=== PATIENT | male | born 1960 | race Caucasian/White ===

== ENCOUNTER → 2024-12-08 07:10 | Outpatient (REF) | payer BC, SELFPAY | LOC: HWRCS 07:10 | PROVIDERS: ATTENDING PHYSICIAN Internal Medicine Cardiovascular Disease; FAMILY PHYSICIAN Family Medicine | DX: I48.19 Other persistent atrial fibrillation (principal); I42.9 Cardiomyopathy, unspecified | CPT/HCPCS: 93306 ==

== ENCOUNTER 2024-12-14 06:20 | Day surgery (SDC) | payer BC, SELFPAY ==
[2024-12-14] VITALS (11 sets, daily range): BP systolic 132–157; BP diastolic 84–101; BMI 21.6
[2024-12-14] MEDS: LOW STRENGTH ASPIRIN 81 MG PO (06:47)
[2024-12-14] MEDS: NSS 291 ML IV (07:09)
--- NOTE | 2024-12-14 09:28 | ITS.CL.CATH ---
Mortgage Operations Manager - Catheterization
Cardiac Catheterization
Procedure Report:
CARDIAC CATHETERIZATION REPORT
Date of Procedure: 12/14/2024
Referring: Nathan Tesfaye M.D.
Indication: Aortic valve insufficiency, shortness of breath/cough, coronary artery calcification, new cardiomyopathy.
PROCEDURE:
1. Right heart catheterization.
2. Coronary angiography.
3. Left heart catheterization.
4. Aortography.
A total of 12 minutes of procedural/moderate sedation was utilized. An independent biomedical engineering professor was present to assist with and help manage the patient's level of consciousness and physiologic status.
ACCESS:
1. 6 Haitian right radial artery using a modified Seldinger technique.
2. 5 Haitian right antecubital vein using a previously placed IV.
CATHETERS:
1. 5 Haitian balloon with.
2. 5 Haitian JL 5.
3. 6 Haitian JR4.
4. 6 Haitian straight pigtail.
HEMODYNAMIC DATA
Weight (kg): 94.3
AO (s/d/x, mmHg): 130/75/98
LV (s/x, mmHg): 134/20
PCWP (a/v/x, mmHg): 23/22/21
PA (s/d/x, mmHg): 40/21/26
RV (s/x, mmHg): 40/14
RA (a/v/x, mmHg): 15//14
SVC SvO2 (%): 66.7
IVC SvO2 (%): Not obtained.
RA SvO2 (%): Not obtained.
RV SvO2 (%): Not obtained.
PA SvO2 (%): 67.7
SaO2 (%): 93.1
Hbg (g/dL): 14.2
LATRELL
CO (L/min): 5.52
CI (L/min/m2): 2.55
Thermodilution
CO (L/min): Not performed.
CI (L/min/m2): Not performed.
TPG (mmHg): 5
PVR (Combs Units): 0.91
SVR (dynes*seconds*cm^-5): 1217
AVO2 Diff (Volume %): 4.91
AV gradient (x, mmHg): None.
AV area (cm2): Normal.
MV gradient (x, mmHg): Not obtained.
MV area (cm2): Not obtained.
LEFT VENTRICULOGRAPHY: Not performed.
AORTOGRAPHY: Performed in an CHELSY projection. The aortic root and ascending aorta are at least moderately dilated. There is no evidence of dissection in any visualized portion of the aorta. There is moderate to severe aortic valve regurgitation
(3+).
CORONARY ANGIOGRAPHY
Dominance: Right.
Left Main: Short, broad, trifurcating vessel. There is no coronary artery disease.
LAD: Normal size vessel giving rise to 2 diagonals. There are minor luminal irregularities throughout.
Ramus: Large size vessel supplying the majority of the lateral wall after bifurcating into a small upper and much larger lower branch. There is no coronary artery disease. The distal vessels are severely tortuous.
Circumflex: Small size, nondominant vessel giving rise to 2 small obtuse marginals there is no coronary artery disease. There is moderate to severe tortuosity.
RCA: Normal size, dominant vessel. There is no coronary artery disease. There is moderate tortuosity.
INTERVENTIONS
None.
Closure Device: Vascular band for the right radial artery, manual pressure for the right antecubital vein.
Radiation dose (mGy): 621.89
DAP (cm2.Gy): 55.4849
Fluoroscopy time (minutes): 8.4
CONCLUSIONS:
1. Right dominant circulation with minor luminal irregularities in the LAD but no occlusive coronary artery disease.
2. Moderately elevated filling pressures (LVEDP = 20 mmHg, PCWP = 21 mmHg at 94.3 kg).
3. Preserved cardiac index (2.55 L/min/m�).
4. Dilated aorta with moderate to severe aortic valve regurgitation (3+/4).
RECOMMENDATIONS:
1. Expectant management after cardiac catheterization via right radial/antecubital approach.
2. Limited weight bearing on the right wrist for one week.
3. Consultation with CT surgery regarding optimal treatment strategy, including aortic root replacement, aortic valve replacement, MAZE and left atrial appendage ligation.
4. Start furosemide 20 mg p.o. daily for elevated filling pressures. BMP in 1 week to monitor renal function.
5. OMT/GDMT as hemodynamics will tolerate.
6. Patient may resume apixaban this evening.
Copy to: Jerry Hart M.D., Nathan Tesfaye M.D., Shaggy Yancey, D.O.
Maurice Velez DO, FACC, FACP
[2024-12-14] MEDS: NSS 1000 IV (09:30)
== END 2024-12-14 12:05 | disposition home or self-care (01) ==
LOC: CATH 06:20
PROVIDERS: ATTENDING PHYSICIAN Internal Medicine Cardiovascular Disease; FAMILY PHYSICIAN Family Medicine; OTHER PHYSICIAN Internal Medicine Cardiovascular Disease
DX: I35.1 Nonrheumatic aortic (valve) insufficiency (principal); R05.9 Cough, unspecified; R06.02 Shortness of breath; I42.9 Cardiomyopathy, unspecified; I25.10 Atherosclerotic heart disease of native coronary artery without angina pectoris; I48.19 Other persistent atrial fibrillation; I71.21 Aneurysm of the ascending aorta, without rupture; I10 Essential (primary) hypertension; M06.9 Rheumatoid arthritis, unspecified; E78.2 Mixed hyperlipidemia; R94.31 Abnormal electrocardiogram [ECG] [EKG]; Z79.01 Long term (current) use of anticoagulants; Z79.899 Other long term (current) drug therapy
CPT/HCPCS: 99152; 93460; 93567; C1894; Q9967

== ENCOUNTER → 2025-01-05 13:58 | Outpatient (REF) | payer BC, SELFPAY | LOC: RAD 13:58 | PROVIDERS: ATTENDING PHYSICIAN Thoracic Surgery (Cardiothoracic Vascular Surgery); FAMILY PHYSICIAN Family Medicine | DX: I71.21 Aneurysm of the ascending aorta, without rupture (principal); Z01.810 Encounter for preprocedural cardiovascular examination | CPT/HCPCS: 75573; Q9967 ==

== ENCOUNTER 2025-02-14 05:01 | Inpatient (IN) | payer MEDICARE, SELFPAY ==
[2025-01-27 12:52] LABS: Hematocrit 43.7 % (39.0-52.0); Hemoglobin 15.5 g/dL (13.0-18.0); Mean Corp Hgb Conc. 35.5 g/dL (33.0-37.0); Mean Corpuscular Volume 95.4 fL (80.0-94.0); Nucleated Red Blood Cells % 0 % (-); Platelet Count 280 10^3/uL (130-400); Red Cell Dist. Width 13.2 % (11.5-14.5)
[2025-01-27 12:57] LABS: INR 1.34; PT 16.9 Sec (11.4-14.6)
[2025-01-27 13:09] LABS: Urine Character Clear (Clear)
--- NOTE | 2025-01-27 13:38 | CM ---
Met with Mr. Dawson in [facility]. He states prior to admission he resides with his spouse in a three story home without any steps to enter. He states he has a full flight of steps to get to bedroom/full bathroom. He states he has a powder room on
the first floor. He states prior to admission he was independent with ambulation and adls. He states he does not have any DME in the home. He states he has a prescription plan. He states his spouse will be home to assist in his care if needed. The
discharge plan is to return home with his spouse and a home visit by the Transitional Care Nurse when medically stable.
We reviewed pre-op and post-op routines. We reviewed the shower instructions. He has the soap, written instructions and the Cardiothoracic Surgery Educational Booklet. We also reviewed restrictions including sternal precautions and driving
restrictions. We also discussed a home visit by the Transitional Care Nurse. He is agreeable to a home visit. The plan is for Aortic Valve on Friday, February 14, 2025.
[2025-01-27 13:45] LABS: Glycohemoglobin (HgbA1c) 5.5 % (4.0-5.6)
[2025-01-27 13:46] LABS: ALT (SGPT) 28 U/L (0-50); AST (SGOT) 31 U/L (17-59); Albumin 4.2 g/dl (3.5-5.0); Alkaline Phosphatase 90 U/L (38-126); Blood Urea Nitrogen 31 mg/dl (9-20); Calcium 9.5 mg/dl (8.4-10.2); Carbon Dioxide 32 mmol/L (22-30); Chloride 102 mmol/L (98-107); Glucose 80 mg/dl (70-99); Potassium 4.7 mmol/L (3.5-5.1); Sodium 140 mmol/L (135-145); Total Protein 7.5 g/dl (6.3-8.2); eGFR > 60.00
[2025-01-30 09:37] VITALS: BMI 29.2
[2025-02-14] VITALS (15 sets, daily range): BP systolic 88–170; BP diastolic 55–104; BMI 28.0
[2025-02-14] MEDS: BACTROBAN 2% OINTMENT 1 APPLIC NASAL ×2 (05:39→20:41)
[2025-02-14] MEDS: LOPRESSOR 25 MG PO (05:39)
[2025-02-14] MEDS: PROTONIX 40 MG PO (05:40)
[2025-02-14] MEDS: MAGNESIUM OXIDE 400 MG PO (05:40)
--- NOTE | 2025-02-14 06:00 | PTCARENOTE ---
Patient admitted to CVICU. Patient confirmed NPO and 2 showers at home. Patient clipped and washed w/ CHG. Admission questions asked. Medications administered. Medication reconciliation performed. Patient states taking Elequis last on
02/10/25. CT PA Ed notified. Updated Hx and physical performed by Ed.
--- NOTE | 2025-02-14 06:49 | W.CVOR.SURPR ---
CVOR Surgeon Immed Pre Op
-
I have examined this patient prior to performance of the scheduled procedure.
The patient's condition is unchanged from the time of the dictated/written History and
Physical and the patient is able to undergo the scheduled procedure.
AVR vs repair, LA MAZE, LA Clip
[2025-02-14 09:15] LABS: ACT+ - POC 137 Seconds (82-134)
[2025-02-14 09:19] LABS: Urine Character Clear (Clear)
[2025-02-14 09:28] LABS: Urine Squamous Cell 0-2 /LPF (Few)
[2025-02-14 09:29] LABS: Urine Red Blood Cell 0-2 /HPF (0-2); Urine White Cell 0-2 /HPF (0-5)
[2025-02-14 10:01] LABS: ACT+ - POC 498 Seconds (82-134)
[2025-02-14 10:03] LABS: B.E. - POC 0.8 mmol/L; Glucose - POC 84 mg/dl (70-99); HCO3 - POC 26 mmol/L (21-28); Hematocrit - POC 34 % PCV (42-52); Hemodilution- POC No; Hemoglobin Calculated - POC 11.7; Ionized Calcium - POC 1.17 mmol/L (1.15-1.33); Lactate - POC 0.57 mmol/L (0.36-0.75); O2 Saturation %Calculated-POC 99.7 % (94-98); PCO2 - POC 44 mmHg (35-48); PO2 - POC 203 mmHg (83-108); POC Comment PRE; Potassium - POC 3.7 mmol/L (3.5-5.1); Sodium - POC 140 mmol/L (136-145); Specimen Type - POC Arterial; pH - POC 7.38 (7.35-7.45)
[2025-02-14 10:11] LABS: ACT+ - POC 507 Seconds (82-134)
[2025-02-14 10:33] LABS: ACT+ - POC 448 Seconds (82-134)
[2025-02-14 10:42] LABS: ACT+ - POC 434 Seconds (82-134)
[2025-02-14 10:43] LABS: B.E. - POC 5.5 mmol/L; Glucose - POC 120 mg/dl (70-99); HCO3 - POC 29 mmol/L (21-28); Hematocrit - POC 34 % PCV (42-52); Hemodilution- POC Yes; Hemoglobin Calculated - POC 11.5; Ionized Calcium - POC 1.07 mmol/L (1.15-1.33); Lactate - POC 0.71 mmol/L (0.36-0.75); O2 Saturation %Calculated-POC 99.9 % (94-98); PCO2 - POC 36 mmHg (35-48); PO2 - POC 256 mmHg (83-108); POC Comment CPB; Potassium - POC 5.0 mmol/L (3.5-5.1); Sodium - POC 138 mmol/L (136-145); Specimen Type - POC Arterial; pH - POC 7.51 (7.35-7.45)
[2025-02-14 10:47] LABS: B.E. - POC 8.9 mmol/L; Glucose - POC 110 mg/dl (70-99); HCO3 - POC 34 mmol/L (21-28); Hematocrit - POC 33 % PCV (42-52); Hemodilution- POC Yes; Hemoglobin Calculated - POC 11.1; Ionized Calcium - POC 1.11 mmol/L (1.15-1.33); Lactate - POC < 0.30 mmol/L (0.36-0.75); O2 Saturation %Calculated-POC 100.0 % (94-98); PCO2 - POC 50 mmHg (35-48); PO2 - POC 574 mmHg (83-108); POC Comment CPB; Potassium - POC 4.2 mmol/L (3.5-5.1); Sodium - POC 139 mmol/L (136-145); Specimen Type - POC Arterial; pH - POC 7.45 (7.35-7.45)
[2025-02-14 10:51] LABS: ACT+ - POC 432 Seconds (82-134)
[2025-02-14 11:02] LABS: ACT+ - POC 442 Seconds (82-134)
[2025-02-14 11:08] LABS: B.E. - POC 3.5 mmol/L; Glucose - POC 140 mg/dl (70-99); HCO3 - POC 26 mmol/L (21-28); Hematocrit - POC 35 % PCV (42-52); Hemodilution- POC Yes; Hemoglobin Calculated - POC 12.0; Ionized Calcium - POC 1.08 mmol/L (1.15-1.33); Lactate - POC 0.87 mmol/L (0.36-0.75); O2 Saturation %Calculated-POC 99.9 % (94-98); PCO2 - POC 33 mmHg (35-48); PO2 - POC 241 mmHg (83-108); POC Comment WARM; Potassium - POC 5.5 mmol/L (3.5-5.1); Sodium - POC 139 mmol/L (136-145); Specimen Type - POC Arterial; pH - POC 7.51 (7.35-7.45)
[2025-02-14 11:17] LABS: ACT+ - POC 129 Seconds (82-134)
--- NOTE | 2025-02-14 11:25 | CM ---
Chart reviewed. Patient is in the OR today. Patient is independent of ADLS, lives with his in a 3 STH, 0 BLAZE, 0 DME. Plan is for the patient to return home with CT Transitional RN. CM to follow
--- NOTE | 2025-02-14 11:30 | W.PN.CT.SURG ---
CT Surgery Operative Note
-
CARDIAC SURGERY OPERATIVE REPORT
Preoperative Diagnosis: Aortic valve insufficiency with symptoms and atrial fibrillation
Postoperative Diagnosis: Same
Procedure(s) Performed:
1. Standard sternotomy with aortic and right atrial cannulation
2. Left atrial maze, posterior wall isolation using RF ablation
3. Ligation left atrial appendage [35 mm clip]
4. Surgical aortic valve replacement [29 mm bioprosthesis]
5. Placement of temporary atrial ventricular pacing wires
Date of Surgery: 02/15/2024
Comorbidities:
1. Persistent atrial fibrillation
2. Moderately severe aortic valve insufficiency with symptoms
3. Rheumatoid arthritis on chronic prednisone
4. Mild ascending aortic ectasia
Attending Surgeon: Jerry Hart MD, MS
Assistants: Carlos Moore PA-C (present and necessary to advertising assistant, retraction, suction, exposure, suture management, and wound closure under my direction)
Anesthesiology: Nam Sosa MD and Lupe Guardado CRNA
Scrub and Circulating RNs: Chad Jose, RN, Mallorie Contreras, ELIZABETH
Yard Conductor: Lorene Pineda CCP
Anesthesia: GETA
EBL: per perfusion records
Products: None
CPB Time: 59 minutes
Aortic Cross Clamp Time: 42 minutes
Indication(s) for Procedures: This is a 64-year-old male with persistent atrial fibrillation who has aortic valve insufficiency. He tells me he has been more symptomatic lately given his AI which is likely contribution to his A-fib, he is referred
for consideration of surgical resection and ablation.
Aortic Valve Description: Trileaflet aortic valve, there was calcification and scarring towards the free margin of the noncoronary cusp. There is also calcification towards the central nodes on the other 2 leaflets. Some fenestrations were also
seen on the non left commissure. The left and right coronary ostia within normal anatomic positions. The annular hinge point of the valve had some mild calcification but no infiltration into the annulus.
Findings: His left ventricular ejection fraction preoperatively was 60% with no significant regional wall motion abnormalities. Following surgery his EF remained the same at 60% with no new regional wall motion abnormalities. He had at least
moderately severe aortic valve insufficiency that was eccentric directed towards the aorto mitral curtain. There was calcification of his noncoronary cusp which is likely the culprit for why he had a high. A posterior wall box RF ablation was
performed for his A-fib, this was done using the encompass clamp with 3 successful pairs of ablations. The left atrial appendage was verified to be free of any thrombus or debris preoperatively find be totally occlusive postoperatively. The
leaflets were excised and a total of 15 nonpledgeted 2 Ethibond sutures were placed circumferentially from LVOT through annulus through sewing cuff of a 29 mm bioprosthesis. This was parachuted into place and secured with core knots. Coming off
cardiopulmonary bypass there were no new regional wall motion abnormalities. He did require AV pacing as he was in a bradycardic rhythm. He did not require inotropic support. His cardiac index is over 2. No blood products required. He had no
paravalvular leak or intra valvular AI. Mean gradient across the valve was 6 mmHg. Of note he was somewhat heparin resistant requiring large doses.
Specimen(s): Aortic valve leaflets.
Prosthesis:
1. 29 mm Medtronic available ultra bioprosthesis, serial number [id number]
2. 35 mm left atrial appendage clip, 7 #[id number]
Description of Procedure: The patient was taken to the operating room. Their identity and procedure to be performed were verified and they were positioned supine on the operating table. Induction via general anesthesia with endotracheal intubation
was performed and central venous access and arterial monitoring were inserted. A preoperative transesophageal echocardiogram was performed to assess cardiac function and valvular function. The patient was then prepped and draped from chin to feet in
a sterile fashion. A preoperative time-out was performed with all members of the team present. A midline chest incision was performed along with median sternotomy. The innominate vein was isolated. Full heparinization was given (a total of 78,000
units). We created a pericardial well. The aortic cannulation site was chosen where it was soft, pliable, and free of calcium. Cannulation was performed with an arterial cannula in the ascending aorta and a triple-stage venous cannula through the
right atrial appendage. The arterial cannula line had an appropriate bounce and correlating pressures with test dosing. The ACT was confirmed to be over 400 and retrograde autologous priming was performed before commencing cardiopulmonary bypass.
The SVC was then away from the RPA. The oblique sinus was then developed. The encompass clamp was passed underneath the SVC and IVC across the transverse and oblique sinuses respectively. 3 successful pairs of ablation were then
performed. The pulmonary artery was away from the aorta to facilitate a clamp site and aortotomy. A left ventricular vent was placed at the right superior pulmonary vein and secured. The aortic cross-clamp was placed after decreasing the
flow on the bypass and mean arterial pressure. Due to his aortic valve insufficiency, the aorta was then transected and a stay suture was placed. Direct ostial done the left main and the right coronary ostium were given. A total of 1 L of
antegrade [place] cardioplegia was administered. There was rapid electro-mechanical arrest of the heart at 600 cc of cardioplegia essentially once we started giving down the right. Cold slush was placed into a sponge and topically on the RV while
we systemically cooled to 34 degrees centigrade.
Carbon dioxide was used to flood the field. The location of both left and right coronary vessels were visualized in the root. The leaflets were excised and sent for pathological assessment. The annulus was debrided of any calcium being mindful of
the annulus and membranous septum. The root and left ventricular outflow tract were thoroughly irrigated to remove any debris. A total of 15 non-pledgeted 2-0 ethibond inverted annular sutures were placed [id number] circumferentially. These were
brought through the sewing cuff of the prosthetic valve which as then parachuted into place. The left and right coronary ostia were visualized and were unobstructed by the valve. A Cor-Knot device was used to secure the annular sutures. The valve
was inspected and was well seated. The aortotomy was approximated with 4-0 prolene in two layers. A root vent was then inserted. De-airing maneuvers were performed and temporary bipolar ventricular pacing wires were placed on the base of the right
ventricle along with atrial pacing wires at the SVC right atrial junction. The patient was placed in a Trendelenburg position and flows on bypass were lowered. The aortic cross clamp was removed and flows were slowly brought back up. The aortotomy
appeared hemostatic. Transesophageal echocardiography revealed no paravalvular leak and appropriate prosthetic function. Once de-airing was satisfactory, the left ventricular and root vents were removed. After verifying acceptable parameters, we
initiated weaning from cardiopulmonary bypass. Once we were off cardiopulmonary bypass, the venous cannula was clamped and removed. A test dose of protamine was administered and the patient was monitored for any adverse reaction before resuming
protamine. Once half of the protamine dose was delivered, pump suckers were turned off and the systolic blood pressure was lowered for aortic decannulation. The aortic cannula was removed and pursestrings were tied down. All cannulation sites were
oversewn with a 4-0 prolene. The aortotomy suture line was inspected and hemostasis was confirmed. Mediastinal hemostasis was obtained. Two 24Fr Xu drains were placed within the pericardium. The sternum was approximated with 4#7 single and 3 #8
double stainless steel wires. Fascia was approximated with #1 vicryl suture. The subcutaneous, dermis and epidermis were closed in layers in a running fashion. The skin wound was cleansed and dressed.
All instrument, sponge, and needle counts were confirmed to be correct x 2 at the end of the operation. The patient was transferred to the cardiac intensive care unit in critical but stable condition.
I, Dr. Jerry Hart, was present, scrubbed for, and performed all critical elements of this procedure.
Jerry Hart MD, MS
Cardiothoracic Surgeon
[facility]
This operative dictation was created using the [employer] dictation system. Please excuse any grammatical, typographical, or 'sound alike' errors
[2025-02-14 11:38] LABS: B.E. - POC 0.5 mmol/L; Glucose - POC 82 mg/dl (70-99); HCO3 - POC 24 mmol/L (21-28); Hematocrit - POC 31 % PCV (42-52); Hemodilution- POC Yes; Hemoglobin Calculated - POC 10.5; Ionized Calcium - POC 1.25 mmol/L (1.15-1.33); Lactate - POC 0.94 mmol/L (0.36-0.75); O2 Saturation %Calculated-POC 99.9 % (94-98); PCO2 - POC 36 mmHg (35-48); PO2 - POC 282 mmHg (83-108); POC Comment POST; Potassium - POC 3.9 mmol/L (3.5-5.1); Sodium - POC 140 mmol/L (136-145); Specimen Type - POC Arterial; pH - POC 7.44 (7.35-7.45)
--- NOTE | 2025-02-14 11:52 | CON.INTV ---
Consultation
Consultation Request
Date/Time Consultation Requested: 02/14/2025 - 112
Date/Time Consultation Performed: 02/14/2025 - 1150
Requesting Provider: Tonya Morrow NP
Performing Provider: Dr. Rivera
Reason for Consultation: s/p SAVR + LA MAZE
Medical History
-
Chief Complaint: Elective aortic valve replacement
History of Present Illness:
64-year-old male with a past medical history of A-fib on Eliquis, hypertension and RA who presents for elective surgical aortic valve replacement. Patient known to the CT surgery service with last visit with Dr. Hart on 01/09/2025. Patient had an
echo on 12/08/2024 showing a preserved LVEF at 55-60% with mild - moderate AI, and a dilated aortic root at 4.2 cm with effacement of the ST junction at 4 cm. Subsequent left heart catheterization on 12/14/2024 showed minor luminal irregularities in
the LAD without occlusive CAD, moderately elevated filling pressures with LVEDP 20 mmHg, PCWP 21 mmHg, preserved CI at 2.55 and a dilated aorta with moderate�severe aortic valve regurgitation (3+ via aortography). He endorses shortness of breath
with occasional dizziness and he is fairly active with yard work/housework. Surgical intervention with aortic valve replacement versus repair was recommended and the patient agreed to this procedure. Today, patient underwent surgical aortic valve
replacement with a 29 mm bioprosthesis, left atrial maze with posterior wall isolation using RF ablation, and ligation left atrial appendage with a 35 mm clip. There were no immediate complications, and the patient was transferred to the CVICU
postoperatively with Cuff Turner services consulted for additional management/recommendations.
When I saw the patient he had already been extubated, currently on 6 L/min nasal cannula, breathing comfortably and saturating 99%. He has mediastinal chest tubes x [address]. Insulin drip currently at 0.4 units/h, also Levophed at 2 mcg/min.
Heart rate 67, BP via A-line: 100/55, PAP 33/14, CO/CI: 4.55/2.11, respectively.
PMHx: Atrial fibrillation on Eliquis, hypertension, rheumatoid arthritis on MTX + Plaquenil
PSHx: Cardioversion, cardiac catheterization
Past Medical History
Past Medical History: Other (Above as per HPI)
Past Surgical History: Other (Above as per HPI)
Social History
Tobacco: Non-smoker
Alcohol: Occasional
Drug: None
Personal:
Living: With Family
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
Family History
Family History: Reviewed & Not Pertinent
Allergies / Home Medications
Allergies
Allergy/AdvReac Type Severity Reaction Status Date / Time
No Known Allergies Allergy Verified 01/25/25 14:20
Home Medications
�Medication �Instructions �Recorded �Confirmed �Last Taken �Type
apixaban 5 mg tablet (Eliquis) 5 mg PO BID Blood Clot 12/14/24 02/14/25 02/10/25 21:00 History
Prevention/Tx
lisinopril 10 mg tablet 10 mg PO DAILY Blood Pressure 12/14/24 02/14/25 02/13/25 09:00 History
methotrexate sodium 2.5 mg tablet 22.5 mg PO QWEEK RA 12/14/24 02/14/25 02/06/25 09:00 History
naproxen 500 mg tablet 500 mg PO DAILY PRN pain 12/14/24 02/14/25 02/09/25 21:00 History
prednisone 5 mg tablet 5 mg PO DAILY PRN RA symptoms 12/14/24 02/14/25 01/14/25 09:00 History
rosuvastatin 5 mg tablet 5 mg PO DAILY High Cholesterol 12/14/24 02/14/25 02/13/25 21:00 History
hydroxychloroquine 200 mg tablet 400 mg PO DAILY RA 01/25/25 02/14/25 02/13/25 09:00 History
furosemide 20 mg tablet (Lasix) 20 mg PO DAILY Fluid 02/14/25 02/14/25 02/13/25 09:00 History
Retention/Swelling
Review of Systems
-
Unable to Obtain full review of systems at this time due to: Acuity
Vitals / Labs / Diagnostic Testing
Vital Signs
Temp Pulse Resp BP Pulse Ox
98.1 F 71 14 93/65 96
02/14/25 05:20 02/14/25 12:20 02/14/25 12:20 02/14/25 12:04 02/14/25 12:20
Lab Data
02/14/25 12:07
Laboratory Results
02/14/25
12:07
pH 7.39
pCO2 45
pO2 165 H
HCO3 27.2
O2 Delivery Level
Diagnostic Testing:
Physical Exam
-
HEENT: Normocephalic and Anicteric
Cardiovascular: S1/S2 and Peripheral Edema (negative)
Respiratory: Clear, Wheeze (negative), Rales (negative), Rhonchi (negative) and Non-Labored Respirations
GI: Soft, Non Distended, Non Tender and Normal Bowel Sounds
Neurology: Tremors (negative) and Other (Drowsy)
Skin: Warm and Dry
General: Respiratory Distress (negative), Comfortable, Fever (negative) and Chills (negative)
Assessment
-
Assessment: 64-year-old male with a past medical history of A-fib on Eliquis, hypertension and RA who presents for elective surgical aortic valve replacement. Patient known to the CT surgery service with last visit with Dr. Hart on 01/09/2025.
Patient had an echo on 12/08/2024 showing a preserved LVEF at 55-60% with mild - moderate AI, and a dilated aortic root at 4.2 cm with effacement of the ST junction at 4 cm. Subsequent left heart catheterization on 12/14/2024 showed minor luminal
irregularities in the LAD without occlusive CAD, moderately elevated filling pressures with LVEDP 20 mmHg, PCWP 21 mmHg, preserved CI at 2.55 and a dilated aorta with moderate�severe aortic valve regurgitation (3+ via aortography). He endorses
shortness of breath with occasional dizziness and he is fairly active with yard work/housework. Surgical intervention with aortic valve replacement versus repair was recommended and the patient agreed to this procedure. On 02/14/2025, he underwent
surgical aortic valve replacement with a 29 mm bioprosthesis, left atrial maze with posterior wall isolation using RF ablation, and ligation left atrial appendage with a 35 mm clip. There were no immediate complications, and the patient was
transferred to the CVICU postoperatively with Cuff Turner services consulted for additional management/recommendations.
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
Impression:
#Moderate�severe aortic valve insufficiency s/p surgical aortic valve replacement with 29 mm bioprosthesis (POD #0)
#Atrial fibrillation s/p left atrial maze, posterior wall isolation using RF ablation and ligation left atrial appendage with 35mm clip (POD #0)
#Acute anemia due to above
#Mild ascending aortic ectasia
#RA on chronic prednisone, methotrexate and hydroxychloroquine
#Bronchiolitis with bronchial wall thickening seen on cardiac CT from 01/05/2025
#Fatty liver
Plan:
Patient had already been extubated in the CVICU and is currently breathing comfortably on 6 L/min nasal cannula and saturating 99%
Continue weaning down supplemental O2 flow rate while keeping SpO2 >90-94%
prn nebulized bronchodilators - not currently bronchospastic
Encourage incentive spirometer use
Pulmonary artery catheter parameters will be followed
Pressors/antihypertensive/inotropes/diuretics will be provided as needed
Maintain MAP>65
Replete electrolytes with K>4, Mg>2
Monitor chest tube output
Monitor hemoglobin
Monitor platelet count and coags
Transfuse blood products as needed to maintain Hb>7g/dL, plt>50k (given post-operative status)
CT surgery managing chest tubes (mediastinal chest tubes x 2)
Monitor blood sugar to maintain euglycemia with goal BG 110-140
Insulin drip per protocol
On CT SAVR on 01/05/2025 he has bilateral bronchial wall thickening with small branching nodular densities in the right upper lobe, right middle lobe and the lower lobes, suggestive of small airway disease.
- Can use DuoNebs if needed for SOB/wheezing (not currently bronchospastic as stated above)
Aspiration precautions
DVT prophylaxis
Early nutrition
Early mobilization
Critical care statement: A total of 37 minutes of critical care time was provided for this patient today. This includes management of ventilator, spontaneous breathing trial, arterial blood gases, pressors, of unstable vital signs, evaluation of the
patient at bedside, reviewing the patient's pertinent medical records including radiographs, microbiology, laboratory evaluations, and discussion with primary team and critical care nursing.
Data:
CT SAVR 01/05/2025:
Dilation of the ascending aorta, short axis diameter 4.6 cm at the level of the right main pulmonary artery.
No significant dilation of the aortic arch, descending thoracic aorta, or visualized upper abdominal aorta.
Bronchial wall thickening within both lower lobes and the lingula, suggesting bronchitis. Scattered areas of branching small nodular opacity, suggesting small airway disease, which could be acute or chronic. Please correlate with pulmonary symptoms.
Linear densities within both lower lobes, with differential considerations of linear atelectasis and/or scarring.
Fatty infiltration of the liver.
--- NOTE | 2025-02-14 12:05 | W.PN.CD ---
Addendum entered and electronically signed by Guero Howell MD 02/14/25 17:27:
I saw and evaluated the patient, and I provided the substantive portion of the medical decision making.
I reviewed and agree with the note by Hetal and it accurately reflects our care.
I personally performed the medical decision making of the this encounter and my assessment and plan is below:
s/p AVR
Doing well post op
Cont post op care
Original Note:
Today's Communication / Plan
-
Postoperative management per CT surgery
Follow telemetry
Impression / Plan
-
I/P: 64M with NICM, persistent atrial fibrillation, coronary artery calcifications, hypertension, hyperlipidemia, rheumatoid arthritis, and aortic valve insufficiency presents for AVR.
Outpatient mascara molder: Dr. Tesfaye
Severe aortic valve insufficiency status post SAVR (29 mm prosthesis) on 02/14/[address] Hart
- Briefly required AV pacing for bradycardia, did not require inotropic support nor blood products with a CI >2
- EKG: Sinus rhythm with first-degree AV block
- Pre-LVEF 60% without RWMA, unchanged postoperatively
- Post MG 6 mmHg without paravalvular leak or intra valvular AI
Persistent atrial fibrillation s/p left atrial maze, posterior wall isolation using RF ablation and 35 mm BELINDA clip
- Stable in sinus rhythm
- Oral Anticoagulation: Apixaban 5 mg twice daily, last dose 02/10/2025, resumption per CT surgery
- [id number]: Score at least 3 (Heart failure, HTN, age 65-74)
Nonischemic cardiomyopathy, recovered (LVEF now 60%)
- ERIN from [facility] with global hypokinesis and moderately decreased LVEF (percentage not on report)
- Follow-up fluid status, maintained on furosemide 20 mg daily in the outpatient setting
- Trend daily weight, I/O, and BMP
Hypertension, mild cLVH on TTE, chronic and stable, follow postoperatively
RA, on hydroxychloroquine, MTX, & prednisone
Coronary artery calcifications on CT, no obstructive CAD, on rosuvastatin 5 mg
Physical Exam
Vital Signs/Labs
Vital Signs
Temp Pulse Resp BP Pulse Ox
98.1 F 98 20 153/104 98
02/14/25 05:20 02/14/25 05:20 02/14/25 05:20 02/14/25 05:39 02/14/25 05:20
02/13/25 02/14/25 02/15/25
06:59 06:59 06:59
Actual Weight 93.5 kg
PT 16.9 Sec (11.4-14.6) H 01/27/25 12:09
INR 1.34 01/27/25 12:09
Physical Exam
Constitutional: No acute distress and Comfortable
EENT: Anicteric and Moist mucous membranes
Cardiovascular: Rhythm & rate is regular, Pedal edema is absent and S1S2 is normal
Respiratory: Lungs clear to auscul.
GI: Soft, Distention absent, Flat, Non tender and Normal bowel sounds
Neuro/Psych: Other (sedated)
Other: Skin (warm and dry)
Data Reviewed
-
Date of Service: February 14, 2025
[2025-02-14 12:09] LABS: Glucose - Point of Care 70 mg/dl (70-99)
[2025-02-14 12:17] LABS: B.E. 1.8 mmol/L; HCO3 27.2 mmol/L (21-28); O2 Saturation % 98.2 % (94-98); PCO2 45 mmHg (35-48); PO2 165 mmHg (83-108); Potassium 4.2 mMOL/L (3.5-5.1); Sodium 137 mMOL/L (136-145)
[2025-02-14 12:25] LABS: Hematocrit 36.4 % (39.0-52.0); Hemoglobin 12.1 g/dL (13.0-18.0); Platelet Count 209 10^3/uL (130-400)
[2025-02-14 12:37] LABS: Blood Urea Nitrogen 25 mg/dl (9-20); Estimated Creatinine Clearance 73 ml/min; Glucose 71 mg/dl (70-99); Magnesium 2.4 mg/dl (1.6-2.3)
[2025-02-14 12:40] LABS: INR 1.51; PT 18.4 Sec (11.4-14.6)
[2025-02-14] MEDS: LR 250 ML IV ×4 (12:40→15:40)
[2025-02-14 12:41] LABS: APTT 39.4 Sec (23.4-35.0)
[2025-02-14] MEDS: NSS 500 IV (12:48)
[2025-02-14] MEDS: TYLENOL PO ×2 (12:48→22:40)
[2025-02-14] MEDS: ANCEF 10 IV ×2 (12:48)
[2025-02-14 13:01] LABS: Glucose - Point of Care 101 mg/dl (70-99)
--- NOTE | 2025-02-14 13:08 | PTCARENOTE ---
Patient received from CVOR at 1200; Sedated and intubated; Distant heart sounds; SR with PVC's and occasional V-pacing on monitor; VSS; Epicardial AV wires present with temporary pacemaker settings DDI 50/10/0.5 50/10/2.0; +2 DP and radial pulses
present; Lungs diminished at bases; ETT size 8 positioned and secured at 24 cm right lip; Ventilator settings SIMV 16/450/5/5 FiO2 40%; CTx2 to -20 cm wall suction draining bloody drainage - no air leak, tidaling, or crepitus noted; Hypoactive BS;
Castro catheter in place draining clear, yellow urine; Sternal midline incision glued, approximated, and ATOMIC PHYSICS TEACHER - CDI; Right radial A-line in place, [place] present in [facility] Cordis at 47 cm - all lines zeroed and leveled; PIVx1 - #18 right forearm;
Levo, insulin, and precedex infusing - see nursing flowsheets for further details; CVNP Mallorie Mar notified regarding CI <2 - LR bolus given x1; see nursing documentation for further details.
CO: 3.90
CI: 1.81
SVR: 1,333
[2025-02-14 14:10] LABS: Glucose - Point of Care 106 mg/dl (70-99)
[2025-02-14 15:02] LABS: Glucose - Point of Care 88 mg/dl (70-99)
--- NOTE | 2025-02-14 15:07 | PTCARENOTE ---
RT in room and patient placed on CPAP trial at 1455; EPOC ABG due at 1525
[2025-02-14 15:32] LABS: B.E. - POC 2.5 mmol/L; Blood Urea Nitrogen - POC 22 mg/dl (3-120); Chloride - POC 107 mmol/L (96-111); Creatinine - POC 1.10 mg/dl (0.3-1.0); Glucose - POC 115 mg/dl (70-99); HCO3 - POC 30 mmol/L (21-28); Hematocrit - POC 38 % PCV (42-52); Hemodilution- POC Yes; Hemoglobin Calculated - POC 12.8; Ionized Calcium - POC 1.29 mmol/L (1.15-1.33); Lactate - POC 0.95 mmol/L (0.36-0.75); O2 Saturation %Calculated-POC 98.8 % (94-98); PCO2 - POC 55 mmHg (35-48); PO2 - POC 133 mmHg (83-108); Potassium - POC 4.5 mmol/L (3.5-5.1); Sodium - POC 145 mmol/L (136-145); Specimen Type - POC Arterial; pH - POC 7.34 (7.35-7.45)
--- NOTE | 2025-02-14 15:37 | PTCARENOTE ---
EPOC ABG reviewed at bedside with CVNP Mallorie C.; RT at bedside; Patient extubated at 1535 and placed on 6L NC; IS 1,000 ml
--- NOTE | 2025-02-14 15:55 | RESPNOTE ---
Respiratory: patient extubated @ 1535 without incident, no stridor, no wheeze.
[2025-02-14 16:13] LABS: Glucose - Point of Care 113 mg/dl (70-99)
[2025-02-14 16:25] LABS: Hematocrit 37.0 % (39.0-52.0); Hemoglobin 12.3 g/dL (13.0-18.0); Platelet Count 217 10^3/uL (130-400)
[2025-02-14] MEDS: PACERONE PO ×2 (16:41→22:42)
[2025-02-14] MEDS: NEURONTIN PO ×2 (16:41→22:40)
[2025-02-14 17:10] LABS: Glucose - Point of Care 106 mg/dl (70-99)
[2025-02-14] MEDS: LOW STRENGTH ASPIRIN 81 MG PO (17:20)
[2025-02-14 18:12] LABS: Glucose - Point of Care 97 mg/dl (70-99)
[2025-02-14] MEDS: ANCEF 5 IV (19:02)
[2025-02-14 20:07] LABS: Glucose - Point of Care 111 mg/dl (70-99)
[2025-02-14] MEDS: SENOKOT PO (20:21)
--- NOTE | 2025-02-14 20:30 | PTCARENOTE ---
Patient received from RN @ 1900. Patient lying in bed sleeping w/ call smith in reach. Patient states they are comfortable. AOx3 and drowsy. Awakens to verbal stimuli and follows commands appropriately. SR w/ first degree on monitor. BP 101/55.
HR 81. Heart sounds distant w/ rub. A/V wires. A-wire 50/10/0.5 V-wire 50/10/2. Radial and pedal pulses present. No edema noted. Lungs bilaterally course and diminished in bases. POX 95% 4L NC. 2x mediastinal CT set to -20 suction draining
red fluid. No crepitus, tidaling, or air leaks. Bowel sounds hypoactive. Castro draining clear yellow urine. Sternal incision well approximated OMA. RIJ cordis w/ swan @ 47 CI 3 CVP 5 PAP 28/10. Right radial A-line patent and intact. All lines
leveled and zeroed. PIV patent and intact. See worklist for more details.
[2025-02-14] MEDS: ZOFRAN 4 MG IV (20:50)
--- NOTE | 2025-02-14 20:54 | PTCARENOTE ---
Patient complains of nausea. Zofran given. See MAR for details.
[2025-02-14 21:56] LABS: Glucose - Point of Care 95 mg/dl (70-99)
[2025-02-14 23:55] LABS: Glucose - Point of Care 98 mg/dl (70-99)
[2025-02-14] MEDS: OFIRMEV 100 IV (23:59)
[2025-02-15] VITALS (23 sets, daily range): BP systolic 98–128; BP diastolic 65–87; PULSE 64; O2SAT 96; BMI 28.3
--- NOTE | 2025-02-15 00:55 | PTCARENOTE ---
Patient reassessed. Patient lying comfortably sleeping. SR w/ first degree on monitor. BP 104/74 HR 69 POX 97% 5L NC.
--- NOTE | 2025-02-15 02:15 | DOWNTIME ---
There was a Physician Referral Network (PRN) Client Readiness Paraprofessional Downtime on 02/15/2025 from 0100 to 02/15/2025 at 0215. Downtime documentation of patient's care, including medication administrations, has been reconciled in the electronic record per guidelines. Refer to the
patient's paper chart under the miscellaneous tab to see printed paper medication records and downtime forms.
[2025-02-15] MEDS: ANCEF 5 IV ×2 (02:45→11:54)
[2025-02-15 02:57] LABS: Hematocrit 36.7 % (39.0-52.0); Hemoglobin 12.0 g/dL (13.0-18.0); Mean Corp Hgb Conc. 32.7 g/dL (33.0-37.0); Mean Corpuscular Volume 97.3 fL (80.0-94.0); Platelet Count 187 10^3/uL (130-400); Red Cell Dist. Width 13.6 % (11.5-14.5)
--- NOTE | 2025-02-15 03:22 | W.PN.CT ---
Today's Communication / Plan
-
-pod #1
-no issues overnight
-CI 2.42, CO 5.22, SVR 1100. Drips: Cardene 2.5, Insulin
-CT outputs: 2 meds 115/295
-kept SBP 90-110 overnight - liberate today 90-130
-wbc 25.7, Tm 98.3- follow
-d/c Gloria rivers
-d/c Insulin
-current meds (ASA, Crestor, Lopressor, Amio, Protonix)
-encourage IS, OOB
Assessment / Plan
-
- Aortic valve insufficiency with symptoms and atrial fibrillation- s/p Surgical aortic valve replacement [29 mm Medtronic bioprosthesis]; Left atrial maze, posterior wall isolation using RF ablation; Ligation left atrial appendage [35 mm clip]
by Dr. Hart on 02/15/24, pod #1
- Intraop ERIN: LVEF 60% pre and postop with no new wma. He had no paravalvular leak or intra valvular AI. Mean gradient across the valve was 6 mmHg. He did require AV pacing as he was in a bradycardic rhythm.
- Paroxysmal a-fib, s/p CV 08/2024, on Eliquis preop
- HTN/HLD
- Nonsmoker
- Rheumatoid arthritis - on chronic Prednisone, Hydroxychloroquine, and Methotrexate3
- Acute postop blood loss anemia- stable
- Acute postop atelectasis/ pulmonary insufficiency
- Acute postop hypovolemia with subsequent hypervolemia
- Suspected acute postop pericarditis/rub
Discussed patient care with: Nursing and Care Team
Subjective
-
Date of Service: February 15, 2025
Objective Data
-
Lab Results
02/15/25 02:51
PT 18.4 Sec (11.4-14.6) H 02/14/25 12:07
INR 1.51 02/14/25 12:07
APTT 39.4 Sec (23.4-35.0) H 02/14/25 12:07
Vital Signs
Vital Signs
Temp Pulse Resp BP Pulse Ox
97.3 F 66 14 109/69 90
02/15/25 02:56 02/15/25 03:10 02/15/25 03:10 02/15/25 03:00 02/15/25 03:10
CT Intake/Output/Weight
02/14/25 02/14/25 02/15/25
06:59 18:59 06:59
Intake Total 1472.9 / 1822.9 350.0 / 1822.9
Output Total 885 / 1455 570 / 1455
Balance 587.9 / 367.9 -220.0 / 367.9
SaO2: 90
Physical Exam
-
General: Awake and AOx3
Cardiovascular: Regular rate & rhythm, No Murmurs and Rub
Respiratory: Decreased Breath Sounds
Sternum: Stable
Incision: Clean, Dry and Dressing Intact
Extremities: No Edema (2+ DPs b/l)
Abdomen: soft, nontender, nondistended, + decreased bowel sounds
Data Reviewed
-
Lab Results: Results Reviewed
Medications: Active Meds Reviewed
Chest X-Ray: Report Reviewed and Image Reviewed
ECG: Report Reviewed and Image Reviewed
[2025-02-15 03:51] LABS: Blood Urea Nitrogen 28 mg/dl (9-20); Calcium 8.5 mg/dl (8.4-10.2); Carbon Dioxide 26 mmol/L (22-30); Chloride 109 mmol/L (98-107); Estimated Creatinine Clearance 80 ml/min; Glucose 91 mg/dl (70-99); Magnesium 2.0 mg/dl (1.6-2.3); Potassium 4.7 mmol/L (3.5-5.1); Sodium 137 mmol/L (135-145); eGFR > 60.00
[2025-02-15 04:04] LABS: Glucose - Point of Care 90 mg/dl (70-99)
--- NOTE | 2025-02-15 05:02 | PTCARENOTE ---
Labs drawn. EKG obtained. Bruce D/C per ABBE Tanner. Patient reassessed. SR w first degree. BP 115/76 HR 69 POX 94% 6L NC.
[2025-02-15 06:06] LABS: Glucose - Point of Care 99 mg/dl (70-99)
--- NOTE | 2025-02-15 06:12 | PTCARENOTE ---
Gloria D/C per CT CLARISA Tanner @ 0600. Cliff ladd to void @ 1200.
[2025-02-15] MEDS: TYLENOL 975 MG PO ×3 (06:38→22:08)
[2025-02-15 07:16] LABS: Glucose - Point of Care 108 mg/dl (70-99)
[2025-02-15] MEDS: SENOKOT 8.6 MG PO ×2 (07:53→20:11)
[2025-02-15] MEDS: LOW STRENGTH ASPIRIN 81 MG PO (07:53)
[2025-02-15] MEDS: MAGNESIUM OXIDE 400 MG PO ×2 (07:53→20:11)
[2025-02-15] MEDS: PROTONIX 40 MG PO (07:53)
[2025-02-15] MEDS: CRESTOR 5 MG PO (07:53)
[2025-02-15] MEDS: PACERONE 200 MG PO ×3 (07:53→22:08)
[2025-02-15] MEDS: LOPRESSOR 12.5 MG PO ×2 (07:54→20:11)
[2025-02-15] MEDS: LIDOCAINE 4% PATCH 1 PATCH TOPICAL (07:54)
[2025-02-15] MEDS: NEURONTIN 100 MG PO ×3 (07:54→22:08)
[2025-02-15] MEDS: BACTROBAN 2% OINTMENT 1 APPLIC NASAL ×2 (07:54→20:11)
--- NOTE | 2025-02-15 08:00 | W.PN.ANS.POP ---
Anesthesia Post Operative
- Anesthesia Post Op Note
Vital Signs Stable-See Nursing Note: Yes (continue on cardene)
Airway Patent: Yes
Adequate Pain Control: Yes
Change in Mental Status: No
Current Postoperative Nausea & Vomiting: No
Anesthesia Complications: No
General Anesthetic Recall: No
Unplanned Admission: No
Post Op Hydration Adequate: Yes
[2025-02-15 08:04] LABS: Glucose - Point of Care 114 mg/dl (70-99)
--- NOTE | 2025-02-15 08:28 | W.PN.INTV ---
Today's Communication / Plan
Recommendations
Up OOB as tolerated
Pain control
Encourage incentive spirometer use
Removal of mediastinal chest tubes per CT surgery team
Insulin drip to be stopped today; goal BG 110�140
Wean down supplemental O2 flow rate as tolerated; if unable to come off oxygen fully or if resting SaO2 is <96% on room air then check ambulatory pulse oximetry prior to discharge
Outpatient pulmonary office follow-up will be arranged given: the bronchitis/bronchiolitis seen on CT SAVR from 01/05/2025 to recommend to use DuoNebs if needed for SOB/wheezing as I suspect he has underlying small airway disease. Consider
outpatient PFTs
Patient to be downgraded to CVICU�telemetry status today. Once downgraded then Wet Finisher/Pulmonary service will sign off. Please call back with any questions or concerns.
Assessment
-
Assessment: 64-year-old male with a past medical history of A-fib on Eliquis, hypertension and RA who presents for elective surgical aortic valve replacement. Patient known to the CT surgery service with last visit with Dr. Hart on 01/09/2025.
Patient had an echo on 12/08/2024 showing a preserved LVEF at 55-60% with mild - moderate AI, and a dilated aortic root at 4.2 cm with effacement of the ST junction at 4 cm. Subsequent left heart catheterization on 12/14/2024 showed minor luminal
irregularities in the LAD without occlusive CAD, moderately elevated filling pressures with LVEDP 20 mmHg, PCWP 21 mmHg, preserved CI at 2.55 and a dilated aorta with moderate�severe aortic valve regurgitation (3+ via aortography). He endorses
shortness of breath with occasional dizziness and he is fairly active with yard work/housework. Surgical intervention with aortic valve replacement versus repair was recommended and the patient agreed to this procedure. On 02/14/2025, he underwent
surgical aortic valve replacement with a 29 mm bioprosthesis, left atrial MAZE with posterior wall isolation using RF ablation, and ligation left atrial appendage with a 35 mm clip. There were no immediate complications, and the patient was
transferred to the CVICU postoperatively with Wet Finisher services consulted for additional management/recommendations.
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
Impression:
#Moderate�severe aortic valve insufficiency s/p surgical aortic valve replacement with 29 mm bioprosthesis (POD #1)
#Atrial fibrillation s/p left atrial MAZE, posterior wall isolation using RF ablation and ligation left atrial appendage with 35mm clip (POD #1)
#Acute anemia due to above
#Mild ascending aortic ectasia
#RA on chronic prednisone, methotrexate and hydroxychloroquine
#Bronchiolitis with bronchial wall thickening seen on cardiac CT from 01/05/2025
#Fatty liver
Plan:
Patient was extubated in the CVICU yesterday, and is currently breathing comfortably on 2 L/min nasal cannula and saturating 94-95%
Continue weaning down supplemental O2 flow rate while keeping SpO2 >90-94%
If resting SaO2 is < 96% on room air, then check ambulatory pulse oximetry prior to the
prn nebulized bronchodilators - not currently bronchospastic
Encourage incentive spirometer use
Pulmonary artery catheter parameters will be followed
Pressors/antihypertensive/inotropes/diuretics will be provided as needed
Maintain MAP>65
Replete electrolytes with K>4, Mg>2
Monitor chest tube output
Monitor hemoglobin
Monitor platelet count and coags
Transfuse blood products as needed to maintain Hb>7g/dL, plt>50k (given post-operative status)
CT surgery managing chest tubes (mediastinal chest tubes x 2)
Monitor blood sugar to maintain euglycemia with goal BG 110-140
Insulin drip will be stopped today
On CT SAVR on 01/05/2025 he has bilateral bronchial wall thickening with small branching nodular densities in the right upper lobe, right middle lobe and the lower lobes, suggestive of small airway disease.
- Can use DuoNebs if needed for SOB/wheezing (not currently bronchospastic as stated above)
- Absolute eosinophils from earlier this month were 400
Aspiration precautions
DVT prophylaxis
Early nutrition
Early mobilization
Patient to be downgraded to CVICU�telemetry status today. Once downgraded then Wet Finisher/Pulmonary service will sign off. Please call back with any questions or concerns.
Data:
CT SAVR 01/05/2025:
Dilation of the ascending aorta, short axis diameter 4.6 cm at the level of the right main pulmonary artery.
No significant dilation of the aortic arch, descending thoracic aorta, or visualized upper abdominal aorta.
Bronchial wall thickening within both lower lobes and the lingula, suggesting bronchitis. Scattered areas of branching small nodular opacity, suggesting small airway disease, which could be acute or chronic. Please correlate with pulmonary symptoms.
Linear densities within both lower lobes, with differential considerations of linear atelectasis and/or scarring.
Fatty infiltration of the liver.
Total time spent today was 78 minutes for this encounter. Time includes reviewing laboratory test/imaging results, reviewing pertinent medical records, obtaining and reviewing medical history, performing an appropriate exam, ordering medications,
tests and procedures. Time also includes documentation of this encounter, coordinating patient care and communicating with other healthcare professionals. Total time does not include separately billed tests performed on this date of service.
Subjective Dataa
Subjective Data
Date of Service:
Date of Service: February 15, 2025
Chief Complaint: Wet Finisher Follow Up and Pulmonary Follow Up
Subjective:
Patient seen today at bedside. Heart rate 67, BP 119/77 and saturating 95%. Currently resting in bed in no acute distress on 2 L/min nasal cannula.
Review of Systems
General: Other (Negative unless mentioned above)
Objective Data
Data Reviewed
Vital Signs / I&O / Oxygen:
Vital Signs
Temp Pulse Resp BP Pulse Ox
97.9 F 71 17 119/72 94
02/15/25 12:00 02/15/25 13:15 02/15/25 12:00 02/15/25 13:00 02/15/25 13:15
Intake and Output
02/14/25 02/15/25 02/16/25
06:59 06:59 06:59
Intake Total 1922.2 / 1945.3 80.1 / 80.1
Output Total 1650 / 1660 75 / 75
Balance 272.2 / 285.3 5.1 / 5.1
SaO2 [CPAP/PSV] 97
SaO2 [SIMV] 98
SaO2 94
Nasal Cannula flow liters per 2
minute
Physical Exam
General: Respiratory Distress (negative), Comfortable and Chills (negative)
HEENT: Normocephalic and Anicteric
Cardiovascular: S1-S2 and Peripheral Edema (negative)
Respiratory: Wheeze (negative), Crackles (negative), Rhonchi (negative), Stridor (negative) and Chest Tube (Mediastinal chest tubes x 2)
GI: Soft, Non Distended and Normal Bowel Sounds
Neurology: Tremors (negative) and Other (Tired today)
Skin: Warm, Dry, Cyanosis (negative) and Jaundice (negative)
Labs/Micro/Reports
Lab Data
02/15/25 02:51
02/15/25 02:51
--- NOTE | 2025-02-15 08:30 | PTCARENOTE ---
Patient received from awake overnight counselor RN; AAOx3, responds spontaneously to RN and follows commands; Friction rub present; SR with 1st AVB and PVC's on monitor; VSS; Epicardial AV wires insulated with temporary pacemaker settings DDI 50/10/0.5 50/10/2.0;
+2 DP and radial pulses present; Lungs diminished at bases; SpO2 92-97% on 6L NC; IS 1000 ml; CTx2 to -20 cm wall suction draining serosanguineous drainage - no air leak, tidaling, or crepitus noted; Poor appetite; DTV; Sternal midline incision
glued, approximated, and EXHIBITS COORDINATOR - CDI; Right radial A-line in place removed by RN at bedside; RIJ Cordis with KVO infusing; PIVx1 - #18 right forearm; Cardene and insulin infusing - see nursing flowsheets for further details; see nursing documentation
for further details.
[2025-02-15] MEDS: COLCHICINE 0.3 MG PO (08:51)
[2025-02-15 10:01] LABS: Glucose - Point of Care 118 mg/dl (70-99)
--- NOTE | 2025-02-15 10:11 | CM ---
Chart reviewed. Patient OOB ambulating the halls. Patient is independent of ADLS, lives with his in a 3 STH, 0 BLAZE, 0 DME. Plan is for the patient to return home. CM to follow
--- NOTE | 2025-02-15 11:13 | W.PN.CD ---
Today's Communication / Plan
-
Routine post operative management.
Incentive spirometry.
Ambulation.
Furosemide 40 mg IV x1 tomorrow.
Impression / Plan
-
Impression/Plan: 64M with NICM, persistent atrial fibrillation, coronary artery calcifications, hypertension, hyperlipidemia, rheumatoid arthritis, and aortic valve insufficiency presents for elective SAVR.
Outpatient paste mixer liquid: Dr. Tesfaye
#Severe aortic valve insufficiency
-Chronic, progressive.
-Status post SAVR (#29 Medtronic Ultra bioprosthesis, SN [id number]) on 02/14/[address] Hart.
-Briefly required AV pacing for bradycardia, did not require inotropic support nor blood products with a CI >2.
-EKG: Sinus rhythm with first-degree AV block.
-Pre-LVEF 60% without RWMA, unchanged postoperatively.
-Post MG 6 mmHg without paravalvular leak or intra valvular AI.
-Routine post operative management.
-Incentive spirometry.
-Ambulation.
-Pain/chest tube management per CTS.
-Furosemide 40 mg IV x1 tomorrow.
#Persistent atrial fibrillation
-Currently in NSR.
-Rate/rhythm control s/p left atrial maze, posterior wall isolation using RF ablation, amiodarone and metoprolol.
-[id number]: Score at least 3 (Heart failure, HTN, age 65-74).
-Oral Anticoagulation: S/P LAAE (#35 [place]lip, SN [id number]), apixaban 5 mg twice daily, last dose 02/10/2025, resumption per CT surgery.
#Nonischemic cardiomyopathy
-Chronic, recovered (LVEF now 60%).
-ERIN from [facility] with global hypokinesis and moderately decreased LVEF (percentage not on report).
-Follow-up fluid status, maintained on furosemide 20 mg daily in the outpatient setting.
-Trend daily weight, I/O, and BMP.
-GDMT
-Diuretic: Furosemide 20 mg PO daily at home.
-Beta emeli: Metoprolol succinate 12.5 mg daily.
-ACEI/ARB/ARNi: Lisinopril 10 mg daily at home, currently on hold.
-MRA: None.
-SGLT2i: None.
-ICD: Not currently indicated.
#Hypertension
-Chronic, currently stable after surgery.
-Monitor and restart lisinopril (home dose 10 mg daily) when BP allows.
#Coronary artery calcifications on CT
-Chronic, no obstructive CAD.
-Continue rosuvastatin 5 mg.
-Goal LDL < 55.
#RA
-Chronic, stable.
-Home hydroxychloroquine, MTX, & prednisone.
Subjective/Interval History:
Weight up 1.2 kg.
SaO2 94% on 2LNC.
DATA:
SAVR, 02/14/2025:
Procedure(s) Performed:
1. Standard sternotomy with aortic and right atrial cannulation
2. Left atrial maze, posterior wall isolation using RF ablation
3. Ligation left atrial appendage [35 mm clip]
4. Surgical aortic valve replacement [29 mm bioprosthesis]
5. Placement of temporary atrial ventricular pacing wires
Physical Exam
Vital Signs/Labs
Vital Signs
Temp Pulse Resp BP Pulse Ox
36.7 C 67 16 123/85 96
02/15/25 08:00 02/15/25 10:00 02/15/25 10:00 02/15/25 10:00 02/15/25 10:00
02/13/25 02/14/25 02/15/25
11:59 11:59 11:59
Actual Weight 93.5 kg 94.7 kg
02/15/25 02:51
02/15/25 02:51
PT 18.4 Sec (11.4-14.6) H 02/14/25 12:07
INR 1.51 02/14/25 12:07
APTT 39.4 Sec (23.4-35.0) H 02/14/25 12:07
Magnesium 2.0 mg/dl (1.6-2.3) 02/15/25 02:51
Physical Exam
Constitutional: No acute distress and Comfortable
EENT: Anicteric and Moist mucous membranes
Cardiovascular: Rhythm & rate is regular, S1S2 is normal and Murmur/rub/gallop absent
Respiratory: Respiratory effort normal, Lungs clear to auscul., Wheeze Absent, Crackles Absent and Rhonchi Absent
GI: Soft, Distention absent, Flat, Non tender and Normal bowel sounds
Neuro/Psych: AO x 3
Data Reviewed
-
Date of Service: February 15, 2025
Medical Decision Making: Reviewed Test Results, Independent Historian Assessment and Test Interpretation
EKG: Tracing Personally Visualized and interpreted and Report Reviewed by me
Echo: Report Reviewed by me
X-Ray/CT/US/MRI/NUC/PET: Image Personally Visualized and interpreted and Report Reviewed by me
Medical Tests (PFT, Pathology etc): Report Reviewed by me
Labs: Labs Reviewed by me
Old Records: Reviewed
[2025-02-15 11:48] LABS: Hepatitis C Antibody Negative (Negative)
[2025-02-15] MEDS: NSS IV (11:54)
[2025-02-15 11:57] LABS: Glucose - Point of Care 119 mg/dl (70-99)
--- NOTE | 2025-02-15 12:30 | PTCARENOTE ---
Patient ambulating in hallways with cardiac rehab; Insulin gtt turned off; Oxygen weaned to 2L NC; Patient resting comfortably in bed
[2025-02-15] MEDS: FERRLECIT 110 MG IV (13:24)
--- NOTE | 2025-02-15 17:32 | PTCARENOTE ---
Patient voided 275 ml of dark, villa urine in urinal; Patient ambulating in hallways with RN; Unable to further wean oxygen at this time; Patient resting comfortably in chair
[2025-02-15] MEDS: ROXICODONE 5 MG PO (17:45)
--- NOTE | 2025-02-15 20:45 | PTCARENOTE ---
Patient received from RN @ 1900. Patient lying in bed w/ call smith in reach. AOx3. SR w/ first degree block. BP 128/80 HR 71. Heart sounds audible w/ rub. A/V wires insulated. Radial and pedal pulses present. No edema noted. POX 92% 2L NC.
IS 1500. Lungs diminished in bases and rhonchi noted bilaterally. Bowel sounds hypoactive. 2x mediastinal chest tube set to -20 suction draining red fluid. No crepitus, tidaling, or air leaks noted. Sternal incision well approximated INSTANTIZER OPERATOR. RIJ
cordis and PIV patent and intact. See worklist for more details.
[2025-02-16] VITALS (15 sets, daily range): BP systolic 82–136; BP diastolic 57–85; PULSE 63; O2SAT 93; BMI 28.8
--- NOTE | 2025-02-16 | PTCARENOTE ---
Assessment unchanged. Patient resting comfortably w/ call smith in reach.
--- NOTE | 2025-02-16 00:13 | W.PN.CT ---
Today's Communication / Plan
-
No issues overnight�
Pericarditis started on�colchicine�0.3 mg daily�
Current meds (ASA, Crestor, Lopressor, Amio, Protonix)��
Maintain�2a/2v�wires and�cordis�
Diuresis =�40�mg�of�Lasix,�adequate�response,�patient voiding�
2 MS�=110/35 =�145���consider dc�
Remains on between 2 to 4L�NC�(wean for O2 sat > 90)�
Encourage IS, OOB�
Assessment / Plan
-
- Aortic valve insufficiency with symptoms and atrial fibrillation- s/p Surgical aortic valve replacement [29 mm Medtronic bioprosthesis]; Left atrial maze, posterior wall isolation using RF ablation; Ligation left atrial appendage [35 mm clip]
by Dr. Hart on 02/15/24, pod #2
- Intraop ERIN: LVEF 60% pre and postop with no new wma. He had no paravalvular leak or intra valvular AI. Mean gradient across the valve was 6 mmHg. He did require AV pacing as he was in a bradycardic rhythm.
- Paroxysmal a-fib, s/p CV 08/2024, on Eliquis preop
- HTN/HLD
- Nonsmoker
- Rheumatoid arthritis - on chronic Prednisone, Hydroxychloroquine, and Methotrexate3
- Acute postop blood loss anemia- stable
- Acute postop atelectasis/ pulmonary insufficiency
- Acute postop hypovolemia with subsequent hypervolemia
- Suspected acute postop pericarditis/rub
Subjective
-
Date of Service: February 16, 2025
Objective Data
-
PT 18.4 Sec (11.4-14.6) H 02/14/25 12:07
INR 1.51 02/14/25 12:07
APTT 39.4 Sec (23.4-35.0) H 02/14/25 12:07
Vital Signs
Vital Signs
Temp Pulse Resp BP Pulse Ox
98.3 F 66 14 124/80 92
02/15/25 23:59 02/15/25 23:10 02/15/25 23:59 02/15/25 22:10 02/15/25 23:59
CT Intake/Output/Weight
02/15/25 02/15/25 02/16/25
06:59 18:59 06:59
Intake Total 449.3 / 1945.3 210.1 / 230.1 20 / 230.1
Output Total 765 / 1660 385 / 420 35 / 420
Balance -315.7 / 285.3 -174.9 / -189.9 -15 / -189.9
SaO2: 92
Physical Exam
-
General: Awake
Cardiovascular: Regular rate & rhythm
Respiratory: Clear and Equal
Sternum: Stable
Incision: Clean, Dry and Intact
Extremities: Edema +1
[2025-02-16] MEDS: ROXICODONE 2.5 MG PO (02:07)
--- NOTE | 2025-02-16 03:16 | PTCARENOTE ---
Patient reassessed. SR w/ first degree on monitor. BP 121/78 HR 64 POX 93% 3L NC.
[2025-02-16 04:30] LABS: Hematocrit 34.2 % (39.0-52.0); Hemoglobin 11.5 g/dL (13.0-18.0); Mean Corp Hgb Conc. 33.6 g/dL (33.0-37.0); Mean Corpuscular Volume 98.6 fL (80.0-94.0); Platelet Count 161 10^3/uL (130-400); Red Cell Dist. Width 13.7 % (11.5-14.5)
[2025-02-16 04:52] LABS: Blood Urea Nitrogen 36 mg/dl (9-20); Calcium 8.8 mg/dl (8.4-10.2); Carbon Dioxide 31 mmol/L (22-30); Chloride 101 mmol/L (98-107); Estimated Creatinine Clearance 66 ml/min; Glucose 134 mg/dl (70-99); Magnesium 2.3 mg/dl (1.6-2.3); Potassium 5.0 mmol/L (3.5-5.1); Sodium 135 mmol/L (135-145); eGFR > 60.00
[2025-02-16] MEDS: TYLENOL 975 MG PO ×3 (06:36→22:50)
--- NOTE | 2025-02-16 06:57 | W.PN.CD ---
Today's Communication / Plan
-
Furosemide 40 mg IV x1.
Albuterol PRN.
Monitor response.
Incentive spirometry.
Ambulate.
Pain/chest tube management per CT surgery.
Impression / Plan
-
Impression/Plan: 64M with NICM, persistent atrial fibrillation, coronary artery calcifications, hypertension, hyperlipidemia, rheumatoid arthritis, and aortic valve insufficiency presents for elective SAVR.
Outpatient electronic installer: Dr. Tesfaye
#Severe aortic valve insufficiency
-Chronic, progressive.
-Status post SAVR (#29 Medtronic Ultra bioprosthesis, SN [id number]) on 02/14/[address] Hart.
-Briefly required AV pacing for bradycardia, did not require inotropic support nor blood products with a CI >2.
-EKG: Sinus rhythm with first-degree AV block.
-Pre-LVEF 60% without RWMA, unchanged postoperatively.
-Post MG 6 mmHg without paravalvular leak or intra valvular AI.
-Routine post operative management.
-Incentive spirometry.
-Ambulation.
-Pain/chest tube management per CTS.
-Furosemide 40 mg IV x1 today and monitor response.
#Persistent atrial fibrillation
-Currently in NSR.
-Rate/rhythm control s/p left atrial maze, posterior wall isolation using RF ablation, amiodarone and metoprolol.
-[id number]: Score at least 3 (Heart failure, HTN, age 65-74).
-Oral Anticoagulation: S/P LAAE (#35 Atriclip, SN [id number]), apixaban 5 mg twice daily, last dose 02/10/2025, resumption per CT surgery.
#Nonischemic cardiomyopathy
-Chronic, recovered (LVEF now 60%).
-ERIN from [facility] with global hypokinesis and moderately decreased LVEF (percentage not on report).
-Follow-up fluid status, maintained on furosemide 20 mg daily in the outpatient setting.
-Trend daily weight, I/O, and BMP.
-GDMT
-Diuretic: Furosemide 40 mg IV x1 today.
-Beta emeli: Metoprolol succinate 12.5 mg daily.
-ACEI/ARB/ARNi: Lisinopril 10 mg daily at home, currently on hold.
-MRA: None.
-SGLT2i: None.
-ICD: Not currently indicated.
#Hypertension
-Chronic, currently stable after surgery.
-Monitor and restart lisinopril (home dose 10 mg daily) when BP allows.
#Coronary artery calcifications on CT
-Chronic, no obstructive CAD.
-Continue rosuvastatin 5 mg.
-Goal LDL < 55.
#Rhonchi/wheezes
-Acute.
-Add albuterol PRN for wheezing.
#RA
-Chronic, stable.
-Home hydroxychloroquine, MTX, & prednisone.
Subjective/Interval History:
Weight up and additional 1.2 kg.
SaO2 92% on 3LNC.
DATA:
SAVR, 02/14/2025:
Procedure(s) Performed:
1. Standard sternotomy with aortic and right atrial cannulation
2. Left atrial maze, posterior wall isolation using RF ablation
3. Ligation left atrial appendage [35 mm clip]
4. Surgical aortic valve replacement [29 mm bioprosthesis]
5. Placement of temporary atrial ventricular pacing wires
Physical Exam
Vital Signs/Labs
Vital Signs
Temp Pulse Resp BP Pulse Ox
36.7 C 64 16 121/78 92
02/16/25 03:13 02/16/25 03:10 02/16/25 03:13 02/16/25 02:58 02/16/25 03:13
02/14/25 02/15/25 02/16/25
11:59 11:59 11:59
Actual Weight 93.5 kg 94.7 kg 96.2 kg
02/16/25 04:13
02/16/25 04:13
PT 18.4 Sec (11.4-14.6) H 02/14/25 12:07
INR 1.51 02/14/25 12:07
APTT 39.4 Sec (23.4-35.0) H 02/14/25 12:07
Magnesium 2.3 mg/dl (1.6-2.3) 02/16/25 04:13
Physical Exam
Constitutional: No acute distress and Comfortable
EENT: Anicteric and Moist mucous membranes
Cardiovascular: Rhythm & rate is regular, Pedal edema is absent, JVD pressure is normal, S1S2 is normal and Murmur/rub/gallop absent
Respiratory: Respiratory effort normal, Wheeze Present and Rhonchi Present
GI: Soft, Distention absent, Flat, Non tender and Normal bowel sounds
Neuro/Psych: AO x 3
Data Reviewed
-
Date of Service: February 16, 2025
Medical Decision Making: Reviewed Test Results, Independent Historian Assessment and Test Interpretation
EKG: Tracing Personally Visualized and interpreted and Report Reviewed by me
X-Ray/CT/US/MRI/NUC/PET: Image Personally Visualized and interpreted and Report Reviewed by me
Labs: Labs Reviewed by me
Old Records: Reviewed
[2025-02-16] MEDS: NEURONTIN 100 MG PO ×3 (08:37→22:50)
[2025-02-16] MEDS: LOPRESSOR 12.5 MG PO ×2 (08:38→20:23)
[2025-02-16] MEDS: CRESTOR 5 MG PO (08:38)
[2025-02-16] MEDS: COLCHICINE 0.3 MG PO (08:38)
[2025-02-16] MEDS: PROTONIX 40 MG PO (08:38)
[2025-02-16] MEDS: BACTROBAN 2% OINTMENT 1 APPLIC NASAL ×2 (08:38→20:23)
[2025-02-16] MEDS: LOW STRENGTH ASPIRIN 81 MG PO (08:38)
[2025-02-16] MEDS: MAGNESIUM OXIDE 400 MG PO ×2 (08:38→20:23)
[2025-02-16] MEDS: PACERONE 200 MG PO ×3 (08:38→22:50)
[2025-02-16] MEDS: LIDOCAINE 4% PATCH 1 PATCH TOPICAL (08:50)
--- NOTE | 2025-02-16 09:38 | PTCARENOTE ---
walking independently. SB. 93 % RA. will contiue to monitor.
--- NOTE | 2025-02-16 11:04 | CM ---
Chart reviewed. Patient is independent of ADLS, lives with his in a 3 STH, 0 BLAZE, 0 DME. Plan is for the patient to return home with CT Transitional RN. CM to follow
[2025-02-16] MEDS: SENOKOT 8.6 MG PO ×2 (12:56→20:22)
[2025-02-16] MEDS: LASIX 40 MG IV (12:56)
[2025-02-16] MEDS: FERRLECIT 110 MG IV (12:58)
[2025-02-16] MEDS: NSS IV (13:00)
--- NOTE | 2025-02-16 13:37 | PTCARENOTE ---
d/c wires by MARITO mendosa bedside without issue.
--- NOTE | 2025-02-16 14:37 | PTCARENOTE ---
d/c chest tubes without incident
[2025-02-16] MEDS: ROXICODONE 5 MG PO ×2 (17:12→23:57)
[2025-02-16] MEDS: MUCINEX 600 MG PO ×2 (18:04→20:23)
--- NOTE | 2025-02-16 20:20 | PTCARENOTE ---
report received from previous RN, walking rounds done. pt in chair, AAOx4. pt c/o sternal incision pain. see MAR for PRN med administration. VSS. SR w 1st degree AVB on monitor, HR 60s. BP 128/80 HR 71. +peripheral pulses. no edema. heart tones
clear. bilateral breath sounds present. POX 92% on room air. moist productive cough noted. IS encouraged. abdomen soft, nontender. +BS. pt voids independently. RIJ cordis and PIV intact and patent. see worklist for full assessment, VS, and
interventions.
[2025-02-16] MEDS: FLEXERIL 5 MG PO (20:22)
[2025-02-16] MEDS: DILAUDID 0.5 MG IV (20:22)
[2025-02-16] MEDS: PLAQUENIL 400 MG PO (22:49)
[2025-02-17] VITALS (13 sets, daily range): BP systolic 87–113; BP diastolic 58–70; PULSE 58; O2SAT 92–95; BMI 28.9
--- NOTE | 2025-02-17 00:44 | W.PN.CT ---
Today's Communication / Plan
-
No issues overnight�
A+V wires pulled yesterday as well as 2M CTs
Pericarditis, continue colchicine�0.3 mg daily�
Current meds (ASA, Crestor, Lopressor, Amio, Protonix)��
Voiding in toilet, weight 94.7->96.2 kg yesterday, today's weight pending
Plaquenil resumed
Encourage IS, OOB�
Assessment / Plan
-
- Aortic valve insufficiency with symptoms and atrial fibrillation- s/p Surgical aortic valve replacement [29 mm Medtronic bioprosthesis]; Left atrial maze, posterior wall isolation using RF ablation; Ligation left atrial appendage [35 mm clip]
by Dr. Hart on 02/15/24, pod #3
- Intraop ERIN: LVEF 60% pre and postop with no new wma. He had no paravalvular leak or intra valvular AI. Mean gradient across the valve was 6 mmHg. He did require AV pacing as he was in a bradycardic rhythm.
- Paroxysmal a-fib, s/p CV 08/2024, on Eliquis preop
- HTN/HLD
- Nonsmoker
- Rheumatoid arthritis - on chronic Prednisone, Hydroxychloroquine, and Methotrexate3
- Acute postop blood loss anemia- stable
- Acute postop atelectasis/ pulmonary insufficiency
- Acute postop hypovolemia with subsequent hypervolemia
- Suspected acute postop pericarditis/rub
Subjective
-
Date of Service: February 17, 2025
Objective Data
-
PT 18.4 Sec (11.4-14.6) H 02/14/25 12:07
INR 1.51 02/14/25 12:07
APTT 39.4 Sec (23.4-35.0) H 02/14/25 12:07
Vital Signs
Vital Signs
Temp Pulse Resp BP Pulse Ox
98.2 F 61 18 95/68 91
02/16/25 23:56 02/17/25 00:00 02/16/25 23:56 02/16/25 23:56 02/16/25 23:56
CT Intake/Output/Weight
02/16/25 02/16/25 02/17/25
06:59 18:59 06:59
Intake Total 30 / 240.1 160 / 160
Output Total 520 / 905 550 / 550
Balance -490 / -664.9 -390 / -390
SaO2: 91
Physical Exam
-
General: Awake and Oriented
Cardiovascular: Regular rate & rhythm and Rub
Respiratory: Clear and Equal
Sternum: Stable
Incision: Clean, Dry and Intact
Extremities: No Edema and No Erythema
Data Reviewed
-
Lab Results: Results Reviewed
Medications: Active Meds Reviewed
Chest X-Ray: Report Reviewed and Image Reviewed
ECG: Report Reviewed and Image Reviewed
--- NOTE | 2025-02-17 06:00 | PTCARENOTE ---
no changes in assessment, VSS. SR/SB w 1st degree AVB 50s-60s. POX 91-92% on room air. AM labs drawn and sent. EKG done. all surgical sites stable. pt sleeping between care.
[2025-02-17] MEDS: TYLENOL 975 MG PO ×3 (06:13→22:16)
[2025-02-17 06:38] LABS: Hematocrit 29.5 % (39.0-52.0); Hemoglobin 9.8 g/dL (13.0-18.0); Mean Corp Hgb Conc. 33.2 g/dL (33.0-37.0); Mean Corpuscular Volume 95.5 fL (80.0-94.0); Platelet Count 113 10^3/uL (130-400); Red Cell Dist. Width 13.7 % (11.5-14.5)
[2025-02-17 06:48] LABS: Blood Urea Nitrogen 36 mg/dl (9-20); Calcium 8.2 mg/dl (8.4-10.2); Carbon Dioxide 33 mmol/L (22-30); Chloride 98 mmol/L (98-107); Estimated Creatinine Clearance 80 ml/min; Glucose 93 mg/dl (70-99); Magnesium 2.3 mg/dl (1.6-2.3); Potassium 4.3 mmol/L (3.5-5.1); Sodium 130 mmol/L (135-145); eGFR > 60.00
--- NOTE | 2025-02-17 07:00 | PTCARENOTE ---
Handoff report received from nightshift RN. Pt OOB in chair. AOx4, NSR/SB first degree AVB 50s-60s, SBP 100s, RA satting 93% lungs diminished bilaterally. Patient performs IS independently and gets up to about 2000. Patient does not c/o pain at this
time. MSI OMA, Chest tube dressing CDI. +2/+1 pulses. No edema noted. Patient independent in room. Weight obtained per order. 40 IV lasix given per order. All needs met at this time, call smith within reach.
--- NOTE | 2025-02-17 07:22 | W.PN.CD ---
Today's Communication / Plan
-
Check weight.
Increase furosemide to 40 mg IV BID today. Transition to furosemide PO tomorrow.
Ambulation.
Incentive spirometry.
Discharge planning.
Impression / Plan
-
Impression/Plan: 64M with NICM, persistent atrial fibrillation, coronary artery calcifications, hypertension, hyperlipidemia, rheumatoid arthritis, and aortic valve insufficiency presents for elective SAVR.
Outpatient intel analyst: Dr. Tesfaye
#Severe aortic valve insufficiency
-Chronic, progressive.
-Status post SAVR (#29 Medtronic Ultra bioprosthesis, SN [id number]) on 02/14/[address] Hart.
-Briefly required AV pacing for bradycardia, did not require inotropic support nor blood products with a CI >2.
-EKG: Sinus rhythm with first-degree AV block.
-Pre-LVEF 60% without RWMA, unchanged postoperatively.
-Post MG 6 mmHg without paravalvular leak or intra valvular AI.
-Routine post operative management.
-Incentive spirometry.
-Ambulation.
-Increase to furosemide 40 mg IV BID today.
#Persistent atrial fibrillation
-Currently in NSR.
-Rate/rhythm control s/p left atrial maze, posterior wall isolation using RF ablation, amiodarone and metoprolol.
-[id number]: Score at least 3 (Heart failure, HTN, age 65-74).
-Oral Anticoagulation: S/P LAAE (#35 Atriclip, SN [id number]), apixaban 5 mg twice daily, last dose 02/10/2025, resumption per CT surgery.
#Nonischemic cardiomyopathy
-Chronic, recovered (LVEF now 60%).
-ERIN from [facility] with global hypokinesis and moderately decreased LVEF (percentage not on report).
-Follow-up fluid status, maintained on furosemide 20 mg daily in the outpatient setting.
-Trend daily weight, I/O, and BMP.
-GDMT
-Diuretic: Furosemide 40 mg IV x1 today.
-Beta emeli: Metoprolol succinate 12.5 mg daily.
-ACEI/ARB/ARNi: Lisinopril 10 mg daily at home, currently on hold.
-MRA: None.
-SGLT2i: None.
-ICD: Not currently indicated.
#Hypertension
-Chronic, currently stable after surgery.
-Monitor and restart lisinopril (home dose 10 mg daily) when BP allows.
#Coronary artery calcifications on CT
-Chronic, no obstructive CAD.
-Continue rosuvastatin 5 mg.
-Goal LDL < 55.
#Rhonchi/wheezes
-Acute.
-Add albuterol PRN for wheezing.
#RA
-Chronic, stable.
-Home hydroxychloroquine, MTX, & prednisone.
Subjective/Interval History:
Furosemide given yesterday. No weight yet this morning. I/O balance -390.
Chest tubes out.
Feels well.
DATA:
SAVR, 02/14/2025:
Procedure(s) Performed:
1. Standard sternotomy with aortic and right atrial cannulation
2. Left atrial maze, posterior wall isolation using RF ablation
3. Ligation left atrial appendage [35 mm clip]
4. Surgical aortic valve replacement [29 mm bioprosthesis]
5. Placement of temporary atrial ventricular pacing wires
Physical Exam
Vital Signs/Labs
Vital Signs
Temp Pulse Resp BP Pulse Ox
36.8 C 60 18 113/70 91
02/17/25 06:01 02/17/25 06:01 02/17/25 06:01 02/17/25 06:01 02/17/25 06:01
02/15/25 02/16/25 02/17/25
11:59 11:59 11:59
Actual Weight 94.7 kg 96.2 kg
02/17/25 05:58
02/17/25 05:58
PT 18.4 Sec (11.4-14.6) H 02/14/25 12:07
INR 1.51 02/14/25 12:07
APTT 39.4 Sec (23.4-35.0) H 02/14/25 12:07
Magnesium 2.3 mg/dl (1.6-2.3) 02/17/25 05:58
Physical Exam
Constitutional: No acute distress and Comfortable
EENT: Anicteric and Moist mucous membranes
Cardiovascular: Rhythm & rate is regular, Pedal edema is absent, JVD pressure is normal, S1S2 is normal and Murmur/rub/gallop absent
Respiratory: Respiratory effort normal, Lungs clear to auscul., Wheeze Absent, Crackles Absent and Rhonchi Absent
GI: Soft, Distention absent, Flat, Non tender, Normal bowel sounds and Distention present
Neuro/Psych: AO x 3
Data Reviewed
-
Date of Service: February 17, 2025
Medical Decision Making: Reviewed Test Results, Tests Ordered and Test Interpretation
EKG: Tracing Personally Visualized and interpreted and Report Reviewed by me
Echo: Tracing Personally Visualized and interpreted and Report Reviewed by me
X-Ray/CT/US/MRI/NUC/PET: Image Personally Visualized and interpreted and Report Reviewed by me
Medical Tests (PFT, Pathology etc): Image Personally Visualized and interpreted and Report Reviewed by me
Labs: Labs Reviewed by me
Old Records: Reviewed
[2025-02-17] MEDS: COLCHICINE 0.3 MG PO (08:02)
[2025-02-17] MEDS: MAGNESIUM OXIDE 400 MG PO ×2 (08:02→19:47)
[2025-02-17] MEDS: NEURONTIN 100 MG PO ×3 (08:02→22:16)
[2025-02-17] MEDS: LOPRESSOR 12.5 MG PO ×2 (08:02→19:48)
[2025-02-17] MEDS: CRESTOR 5 MG PO (08:02)
[2025-02-17] MEDS: LOW STRENGTH ASPIRIN 81 MG PO (08:02)
[2025-02-17] MEDS: MUCINEX 600 MG PO ×2 (08:02→19:47)
[2025-02-17] MEDS: PROTONIX 40 MG PO (08:02)
[2025-02-17] MEDS: PLAQUENIL 400 MG PO (08:03)
[2025-02-17] MEDS: PACERONE 200 MG PO ×3 (08:03→22:16)
[2025-02-17] MEDS: LIDOCAINE 4% PATCH 1 PATCH TOPICAL (08:03)
[2025-02-17] MEDS: SENOKOT 8.6 MG PO ×2 (08:03→19:51)
[2025-02-17] MEDS: BACTROBAN 2% OINTMENT 1 APPLIC NASAL ×2 (08:03→19:47)
[2025-02-17] MEDS: LASIX 40 MG IV (08:11)
[2025-02-17] MEDS: NSS IV (11:14)
--- NOTE | 2025-02-17 11:54 | PTCARENOTE ---
Patient independent in room. VSS at this time. Patient encouraged to do IS and to cough to open up lungs and improve oxygenation. Cordis dc'd per order, dressing CDI. Pt does not c/o pain at this time. All needs met, call smith within reach.
[2025-02-17] MEDS: FERRLECIT 110 MG IV (14:33)
--- NOTE | 2025-02-17 16:00 | PTCARENOTE ---
Patient independent in room. VSS at this time. Patient does not c/o pain. Completing IS independently. productive cough noted, encouraged patient to cough up mucus in order to open up lungs and improve spO2. I/Os charted, urine very villa and output
low, Maricel BELTRAN made aware, patient voided another 250cc and bladder scanned for 17cc. All needs met at this time, call smith within reach.
[2025-02-17] MEDS: MILK OF MAGNESIA 30 ML PO (16:32)
--- NOTE | 2025-02-17 19:00 | PTCARENOTE ---
Family at bedside. Informed patient and family that patient is being transferred to IVU around 1829. very unhappy with the situation and confronted this RN about it at the nurses station. This nurse calmly explained that patient no longer meets
ICU criteria and can be transferred to a low level unit. remains upset and frustrated with the situation, Nursing marble installer supervisor made aware. Around 1829, patient transferred to 2255 in IVU and all belongings brought with him. Patient stable upon
transfer. I/Os charted. All needs met at this time, call smith within reach, patient OOB in recliner. Handoff report given to nightshift IVU RN.
[2025-02-17] MEDS: ROXICODONE 5 MG PO (21:01)
--- NOTE | 2025-02-18 | PTCARENOTE ---
assumed care of patient at the change of shift. family at the bedside. AAOx3. oob in the chair-sternal precautions maintained. SB/SR on tele with a first degree AVB 50s-60s. bp stable. + harsh/productive cough. yellow sputum per patient. coarse lung
sounds b/l bases. IS encouraged. cough/deep breathing encouraged. 93-95% on RA. denies any sob. sternal incision pain d/t coughing. prn oxy given, see mar. relief noted per patient. surgical incisions intact. reviewed plan of care with patient and
verbalized understanding. updated Ed Ruma MCKENNA. chest xray already ordered for AM.
[2025-02-18 02:57] VITALS: BP 128/79
[2025-02-18 03:35] LABS: Hematocrit 30.4 % (39.0-52.0); Hemoglobin 10.0 g/dL (13.0-18.0); Mean Corp Hgb Conc. 32.9 g/dL (33.0-37.0); Mean Corpuscular Volume 99.7 fL (80.0-94.0); Platelet Count 118 10^3/uL (130-400); Red Cell Dist. Width 13.7 % (11.5-14.5)
[2025-02-18 03:58] LABS: Blood Urea Nitrogen 36 mg/dl (9-20); Calcium 8.3 mg/dl (8.4-10.2); Carbon Dioxide 34 mmol/L (22-30); Chloride 97 mmol/L (98-107); Estimated Creatinine Clearance 73 ml/min; Glucose 100 mg/dl (70-99); Magnesium 2.4 mg/dl (1.6-2.3); Potassium 4.3 mmol/L (3.5-5.1); Sodium 135 mmol/L (135-145); eGFR > 60.00
[2025-02-18] MEDS: CALCIUM GLUCONATE 130 MG IV (05:07)
[2025-02-18] MEDS: TYLENOL 975 MG PO (05:08)
[2025-02-18 06:00] VITALS: BMI 29.3
--- NOTE | 2025-02-18 06:30 | W.PN.CT ---
Today's Communication / Plan
-
Plan:
-No issues overnight. Hemodynamically and neurologically intact �
-Off all drips
-Na+ 135, up from 130 yesterday. Diuresed well. Had BM today. Wt in IVU may be erroneous, as scale in IVU noted to give different reading than scale in CVICU
-Cont. gentle diuresis
-Encourage use of IS
-F/U 2-view cxr
-PW d/c'd on POD#2
-OOB into chair/Ambulate
-D/C Home today
Assessment / Plan
-
- Aortic valve insufficiency with symptoms and atrial fibrillation- s/p Surgical aortic valve replacement [29 mm Medtronic bioprosthesis]; Left atrial maze, posterior wall isolation using RF ablation; Ligation left atrial appendage [35 mm clip]
by Dr. Hart on 02/15/24, pod #4
- Intraop ERIN: LVEF 60% pre and postop with no new wma. He had no paravalvular leak or intra valvular AI. Mean gradient across the valve was 6 mmHg. He did require AV pacing as he was in a bradycardic rhythm.
- Paroxysmal a-fib, s/p CV 08/2024, on Eliquis preop
- HTN/HLD
- Nonsmoker
- Rheumatoid arthritis - on chronic Prednisone, Hydroxychloroquine, and Methotrexate3
- Acute postop blood loss anemia- stable
- Acute postop atelectasis/ pulmonary insufficiency
- Acute postop hypovolemia with subsequent hypervolemia
- Suspected acute postop pericarditis/rub
- Acute postop hyponatremia, 13
Discussed patient care with: Cardiology, Nursing, Respiratory Therapy, Pharmacy and Care Team
Subjective
-
Date of Service: February 18, 2025
C/o mild incisional pain, otherwise feels well. Ambulating halls without difficulty. Had BM. Wants to go home
Objective Data
-
Lab Results
02/18/25 03:10
02/18/25 03:10
PT 18.4 Sec (11.4-14.6) H 02/14/25 12:07
INR 1.51 02/14/25 12:07
APTT 39.4 Sec (23.4-35.0) H 02/14/25 12:07
Vital Signs
Vital Signs
Temp Pulse Resp BP Pulse Ox
98.6 F 57 18 128/79 96
02/18/25 03:20 02/18/25 03:00 02/18/25 03:20 02/18/25 02:57 02/18/25 03:20
CT Intake/Output/Weight
02/17/25 02/17/25 02/18/25
06:59 18:59 06:59
Intake Total 480 / 480
Output Total 575 / 850 275 / 850
Balance -95 / -370 -275 / -370
SaO2: 96 (RA)
Physical Exam
-
General: Awake, Oriented and AOx3
Cardiovascular: Regular rate & rhythm, No Murmurs, No Rub and No Gallop
Respiratory: Decreased Breath Sounds (at bases, otherwise clear)
Sternum: Stable
Incision: Clean, Dry, Intact and Dressing Intact
Extremities: Other (+trace edema)
Data Reviewed
-
Lab Results: Results Reviewed
Medications: Active Meds Reviewed
Chest X-Ray: Report Reviewed and Image Reviewed
ECG: Report Reviewed and Image Reviewed
[2025-02-18 07:46] VITALS: BP 118/76
[2025-02-18] MEDS: PACERONE 200 MG PO (08:11)
[2025-02-18] MEDS: LOPRESSOR 12.5 MG PO (08:11)
[2025-02-18] MEDS: SENOKOT 8.6 MG PO (08:11)
[2025-02-18] MEDS: COLCHICINE 0.3 MG PO (08:11)
[2025-02-18] MEDS: MUCINEX 600 MG PO (08:11)
[2025-02-18] MEDS: LOW STRENGTH ASPIRIN 81 MG PO (08:11)
[2025-02-18] MEDS: PLAQUENIL 400 MG PO (08:12)
[2025-02-18] MEDS: NEURONTIN 100 MG PO (08:12)
[2025-02-18] MEDS: CRESTOR 5 MG PO (08:12)
[2025-02-18] MEDS: PROTONIX 40 MG PO (08:12)
[2025-02-18] MEDS: LIDOCAINE 4% PATCH 1 PATCH TOPICAL (08:13)
[2025-02-18] MEDS: BACTROBAN 2% OINTMENT 1 APPLIC NASAL (08:22)
[2025-02-18] MEDS: ELIQUIS 5 MG PO (08:41)
[2025-02-18 11:28] VITALS: BP 97/61
[2025-02-18] MEDS: NSS IV (11:29)
[2025-02-18 11:37] VITALS: BP 104/58
--- NOTE | 2025-02-18 11:58 | PTCARENOTE ---
Assumed care of the pt @ 0700. Pt is AAOx3 sitting up in the chair SB/SR with 1st degree HB on the monitor denies cp. POC discussed with pt who verbalized understanding. Call smith within reach.
--- NOTE | 2025-02-18 12:00 | PTCARENOTE ---
Pt transferred to ED Radiology for CXR and back with incident. Pt showered and back to chair without difficulties.
--- NOTE | 2025-02-18 12:00 | W.DCSUMMARY ---
Discharge Summary
Discharge Data
Date of Admission: 02/14/25
Date of Discharge: 02/18/25
-
Pending Results: No
Hospital Course
Primary care physician: Shaggy Yancey�
Outpatient medical investigator: Nathan Tesfaye�
Inpatient consultants: [facility] Cardiogy, pulmonary auto radiator specialist
Procedures:
1. aortic valve replacement, MAZE, left atrial appendage exclusion
Primary Diagnosis:
1. Aortic valve insufficiency
Secondary Diagnoses:
1. Persistent Atrial fibrillation s/p cardioversion 09/18, on Eliquis
2. Rheumatoid arthritis on chronic prednisone/methotrexate/Plaquenil
4. Mild ascending aortic ectasia
5. HTN
6. HLD
- Acute postop blood loss anemia- stable
- Acute postop atelectasis/ pulmonary insufficiency
- Acute postop hypovolemia with subsequent hypervolemia
- Suspected acute postop pericarditis/rub
- Acute postop hyponatremia, 130
- Acute postop thrombocytopenia
HPI: 64-year-old male with a past medical history of A-fib on Eliquis (held 3 days prior to surgery), hypertension and RA who was electively admitted 02/14/25 for aortic valve replacement
Hospital course: Patient was taken to the operating room and underwent aortic valve replacement [#29 mm bioprosthesis], Left atrial maze, posterior wall isolation using RF ablation and Ligation left atrial appendage [35 mm clip] by Dr. Edwards
Hart. For further details, please see operative report. Postprocedure ERIN reported EF 60-65% with AV mean gradient 7 mmHg, no AI or prosthetic valvular leak. Patient required no intraoperative blood products and returned to CVICU on Levophed 2,
insulin, Precedex. Patient was extubated on the day of surgery at 1305. On postoperative day 1, patient was delined. Morning ECG reported pericarditis and colchicine was initiated. Temporary atrial and ventricular wires were pulled on
postoperative day #2 and mediastinal chest tubes removed. Postoperative day #3, Lasix 40 mg was initiated for weight gain and hyponatremia (sodium 130). Expected postoperative thrombocytopenia was noted on postoperative day 3 with allie at 113k,
with Improvement on Postoperative Day #4 to 118k. Plaquenil and Eliquis were resumed. Patient experienced no postoperative arrhythmias and did not require continued prophylactic amiodarone on discharge. Toprol was continued at 25 mg daily patient
evaluated in halls was cardiac rehab and deemed stable for discharge. Labs on day of discharge hemoglobin 10, platelet count 118K, creatinine 1.1, sodium 135. Lisinopril and Naproxen discontinued on discharge. Patient may resume his chronic weekly
methotrexate on discharge.
Home medication changes:
STOP: Lisinopril, Naproxen
Discharge Plan
-
Patient Disposition: Home (Routine Discharge)
Discharge Diagnosis/Procedures: AVR, MAZE, left atrial appendage clip 02/14
Condition: Good
Diet: No restrictions
Activity: No strenuous activity
Driving Restrictions: Not until seen by your Dr
Bathing Restrictions: OK to Shower
Other Services: Cardiac Rehab
Specialty Instructions: Weigh Daily- Call MD for wt gain/loss 3 lbs overnight/5 lbs in 1 week
Stand Alone Forms: DC Inst - TransApical (TAVR)
Referrals:
CT Transitional Care Nurse [Outside]
Referral Note: The Cardiothoracic Transitional Care Nurse will call you to set up a visit in 1-2 days.
[facility]. Cardiac Rehab [Outside] - 03/21/25 1:00 pm
Referral Note: Cardiac Rehab Orientation appointment is on 03/21/25 at 1:00 pm
The Cardiac Rehab gym is located on the first floor of the [facility].
Toshia Gómez CRNP [Specified Professional Personl, Cardiology] - 03/28/25 11:20 am
Axel Rivera MD [Active, Pulmonary Medicine] - in four to six weeks
Referral Note: Full PFTs on day of office visit
Abnormal CT SAVR in December 2024 with evidence of significant bronchial wall thickening with suspected small airways disease.
Jerry Hart MD [Active, Cardiac Surgery] - 03/20/25 2:00 pm
Shaggy Yancey Jr., [Family Provider, [facility]]
Additional Discharge Medication Instructions: STOP Lisinopril as BP low normal range; colchicine for pericarditis
Prescriptions:
New
pantoprazole 40 mg Tablet,Delayed Release (Dr/Ec)
40 mg PO DAILY Qty: 30 1RF
gabapentin 100 mg Capsule
100 mg PO TID Qty: 30 0RF
colchicine 0.6 mg Tablet
0.3 mg PO DAILY Qty: 30 1RF
oxycodone 5 mg Tablet
5 mg PO Q4HPRN PRN (Reason: severe pain) Qty: 10 0RF
metoprolol succinate [Toprol XL] 25 mg tablet extended release 24 hr
25 mg PO DAILY Qty: 30 2RF
cyclobenzaprine 10 mg Tablet
5 mg PO Q8HPRN PRN (Reason: muscle spasm) Qty: 10 0RF
Continued
prednisone 5 mg Tablet
5 mg PO DAILY PRN (Reason: RA symptoms)
methotrexate sodium 2.5 mg Tablet
22.5 mg PO QWEEK
rosuvastatin 5 mg Tablet
5 mg PO DAILY
Eliquis 5 mg Tablet
5 mg PO BID
hydroxychloroquine 200 mg Tablet
400 mg PO DAILY
furosemide [Lasix] 20 mg tablet
20 mg PO DAILY
Discontinued
lisinopril 10 mg Tablet
10 mg PO DAILY
naproxen 500 mg Tablet
500 mg PO DAILY PRN (Reason: pain)
Discharge Orders:
Discharge Patient (As Directed); Ordered 02/18/25
Ordered By: Maricel Saba
Care Plan Goals
Care Plan Goals:
Problem: Readiness for enhanced knowledge related to diagnosis and treatment plan
Goal: Understand your diagnosis and treatment plan needs, including medications if applicable.
Instructions: Know your diagnosis, underlying causes and treatment plan options, including medications if applicable. Consult with your health care team to learn about your diagnosis and treatment plan, including medications if applicable.
Discharge Date and Time
Discharge Date/Time: 02/18/25 15:28
Print Language: HUNGARIAN
[2025-02-18] MEDS: TYLENOL PO (15:20)
--- NOTE | 2025-02-18 15:22 | PTCARENOTE ---
Pt was discharged to home with family. Pt's hall monitor and piv removed prior to dc. Pt received wallet card and discharge instructions upon discharge. Pt and verbalized understanding. Pt was escorted out in wheelchair by staff.
[2025-02-21 09:44] LABS: Glucose - Point of Care 101 mg/dl (70-99)
== END 2025-02-18 15:28 | disposition home or self-care (01) | DRG 317 ==
LOC: IVU 05:01
PROVIDERS: Anesthesiology; ADMITTING PHYSICIAN Thoracic Surgery (Cardiothoracic Vascular Surgery); CONSULT PHYSICIAN Internal Medicine Cardiovascular Disease; CONSULT PHYSICIAN Internal Medicine Critical Care Medicine; FAMILY PHYSICIAN Family Medicine
PROC: 02RF08Z Replacement of Aortic Valve with Zooplastic Tissue, Open Approach (ICD-10-PCS; 2025-02-14)
PROC: 5A1221Z Performance of Cardiac Output, Continuous (ICD-10-PCS; 2025-02-14)
PROC: 02L70CK Occlusion of Left Atrial Appendage with Extraluminal Device, Open Approach (ICD-10-PCS; 2025-02-14)
PROC: B24BZZ4 Ultrasonography of Heart with Aorta, Transesophageal (ICD-10-PCS; 2025-02-14)
PROC: 02580ZZ Destruction of Conduction Mechanism, Open Approach (ICD-10-PCS; 2025-02-14)
DX: I35.1 Nonrheumatic aortic (valve) insufficiency (principal); J95.1 Acute pulmonary insufficiency following thoracic surgery; I48.19 Other persistent atrial fibrillation; D62 Acute posthemorrhagic anemia; J98.11 Atelectasis; I30.8 Other forms of acute pericarditis; E87.1 Hypo-osmolality and hyponatremia; I42.8 Other cardiomyopathies; J21.9 Acute bronchiolitis, unspecified; M06.9 Rheumatoid arthritis, unspecified; I77.810 Thoracic aortic ectasia; R00.1 Bradycardia, unspecified; I10 Essential (primary) hypertension; E78.00 Pure hypercholesterolemia, unspecified; E86.1 Hypovolemia; E87.70 Fluid overload, unspecified; Y83.8 Other surgical procedures as the cause of abnormal reaction of the patient, or of later complication, without mention of misadventure at the time of the procedure; D69.59 Other secondary thrombocytopenia; I25.10 Atherosclerotic heart disease of native coronary artery without angina pectoris; I44.0 Atrioventricular block, first degree; K76.0 Fatty (change of) liver, not elsewhere classified; Z79.52 Long term (current) use of systemic steroids; Z79.01 Long term (current) use of anticoagulants
CPT/HCPCS: 36415; 71045; 71046; 80048; 80053; 81003; 81015; 82248; 82330; 82565; 82805; 82947; 82962; 83036; 83735; 84132; 84302; 84520; 85014; 85018; 85025; 85027; 85049; 85610; 85730; 86803; 86850; 86900; 86901; 86920; 87070; 88305; 88311; 93005; 93312; 93320; 93325; 93880; 94002; J2916

== ENCOUNTER 2025-03-21 13:00 | Outpatient (RCR) | payer MEDICARE, OTHER, SELFPAY | END 2025-03-21 23:59 | disposition home or self-care (01) | LOC: CRHB 13:00 | PROVIDERS: ATTENDING PHYSICIAN Internal Medicine Cardiovascular Disease; FAMILY PHYSICIAN Family Medicine | DX: Z95.2 Presence of prosthetic heart valve (principal) | CPT/HCPCS: G0422; G0423 ==

== ENCOUNTER 2025-04-24 17:37 | Outpatient (RCR) | payer MEDICARE, OTHER, SELFPAY | END 2025-04-24 23:59 | disposition home or self-care (01) | LOC: CRHB 17:37 | PROVIDERS: ATTENDING PHYSICIAN Internal Medicine Cardiovascular Disease; FAMILY PHYSICIAN Family Medicine | DX: Z95.2 Presence of prosthetic heart valve (principal) | CPT/HCPCS: G0422; G0423 ==